=== PATIENT | male | born 1960 | race African-American/Black ===

== ENCOUNTER 2016-09-05 14:22 | Inpatient (IN) | payer BC ==
[~2016-09-05] VITALS: Ht 180.3 cm; Wt 79.4 kg
[~2016-09-05 14:22] MED LIST: NORCO 5-325 TA1 EACH ORAL
[2016-09-05] MEDS ORDERED: Morphine Sulfate 2mg/ml Inj IVP ONE (14:45)
--- NOTE | 2016-09-05 14:50 | Emergency Room Report ---
History of Present Illness General Chief Complaint: General Complaint Source: Patient, Family Member Present Illness HPI 56YOM walk-in with 4 days no appetite, nausea/vomiting, decreased/absent BM, still passing gas. Denies actual abdominal pain but feels like "my stomach is twisted." Denies fever/chills. Years ago had "twisting of intestine," was evaluated at [facility]. Denies surgery/operation, not sure how it was resolved. History of HTN. No other medical problems. Just got out of ETOH detox program 4 days ago. Hasnt drank since. Allergies: Coded Allergies: No Known Allergies (Unverified , 09/20/15) Patient History Past Medical History: HTN Past Surgical History: none Pertinent Family History: none Social History: Denies: alcohol use, drug use, smoking Immunizations: UTD Reviewed Nursing Documentation: PMH: Agreed, PSxH: Agreed Nursing Documentation-PMH Past Medical History: No History, Except For Hx Cancer: Yes - throat cancer 2011 Hx Gastrointestinal Problems: Yes Review of Systems All Other Systems: negative except mentioned in HPI Physical Exam Vital Signs Date Time Temp Pulse Resp B/P Pulse Ox O2 Delivery O2 Flow Rate FiO2 09/05/16 14:35 98.2 120 18 91/55 99 Room Air Sp02 EP Interpretation: reviewed, abnormal General Appearance: normal inspection, well appearing, no apparent distress, alert, GCS 15, non-toxic Head: normocephalic, atraumatic Eyes: bilateral eye EOMI, bilateral eye PERRL ENT: normal ENT inspection, hearing grossly normal, normal voice Neck: normal inspection, full range of motion, supple, no bony tend Respiratory: normal inspection, lungs clear, normal breath sounds, no respiratory distress, no retraction, no wheezing Cardiovascular #1: regular rate, rhythm, no edema Gastrointestinal: normal inspection, normal bowel sounds, non tender, soft, no guarding, no hernia Genitourinary: no CVA tenderness Musculoskeletal: normal inspection, back normal, normal range of motion, Chari' s Sign negative Neurologic: normal inspection, alert, oriented x3, responsive, tree and shrub technician III-XII nml as tested, motor strength/tone normal, speech normal Psychiatric: normal inspection, judgement/insight normal, mood/affect normal Skin: normal inspection, normal color, no rash Lymphatic: normal inspection Medical Decision Making Diagnostic Impression: Primary Impression: Nausea & vomiting Qualified Codes: R11.2 - Nausea with vomiting, unspecified Additional Impressions: NATALY (acute kidney injury) Dehydration ER Course Labs: No leuks. H&H stable. SerumCr 1.3 CTAP: no acute abnormalty to explain pain. Contrast seen all the way thru on CT. Admit to med/surg bed for dehydration, NATALY to Dr Packer at 621pm Rhythm Strip Diag. Results EP Interpretation: yes Rate: 99 Rhythm: NSR, no PVC's, no ectopy Last Vital Signs Date Time Temp Pulse Resp B/P Pulse Ox O2 Delivery O2 Flow Rate FiO2 09/05/16 14:35 98.2 120 18 91/55 99 Room Air Status: improved Disposition: ADMITTED INPATIENT Condition: Serious MARK MCGRAW M.D. Sep 05, 2016 14:50
[2016-09-05 14:52] VITALS: BP 126/83
[2016-09-05] MEDS ORDERED: BENAZEPRIL HCL10 MG ORAL (15:17)
[2016-09-05] MEDS ORDERED: NALTREXONE HCL50 MG PO (15:17)
[2016-09-05] MEDS ORDERED: GABAPENTIN300 MG ORAL (15:17)
[2016-09-05] MEDS ORDERED: QUETIAPINE FUMA25 MG ORAL (15:17)
[2016-09-05] MEDS ORDERED: NORVASC5 MG ORAL (15:17)
[2016-09-05 15:34] LABS: BASOPHILS % (AUTO) 1.6 % (0.0-2.0); EOSINOPHILS % (AUTO) 1.8 % (0.0-3.0); LYMPHOCYTES % (AUTO) 19.7 % (20.0-45.0); MEAN CORPUSCULAR HEMOGLOBIN 36.9 PG (27.0-31.0); MEAN CORPUSCULAR HGB CONC 35.8 G/DL (32.0-36.0); MEAN CORPUSCULAR VOLUME 103 FL (80-99); MEAN PLATELET VOLUME 7.7 FL (6.5-10.1); MONOCYTES % (AUTO) 7.7 % (1.0-10.0); NEUTROPHILS % (AUTO) 69.1 % (45.0-75.0); PLATELET COUNT 173 K/UL (150-450); WHITE BLOOD COUNT 10.6 K/UL (4.8-10.8)
[2016-09-05 15:35] LABS: INR 1.1 (0.9-1.1); PROTHROMBIN TIME 11.3 SEC (9.30-11.50)
[2016-09-05] MEDS ORDERED: LR 1000ml 1,000 ML IV STA (15:35)
[2016-09-05 15:40] LABS: ALANINE AMINOTRANSFERASE 5 U/L (3-41); ALBUMIN/GLOBULIN RATIO 1.3 (1.0-2.7); ASPARTATE AMINO TRANSFERASE 16 U/L (5-40); CALCIUM 10.6 mg/dL (8.6-10.2); CARBON DIOXIDE 27 mEQ/L (20-30); CREATININE 1.3 mg/dL (0.7-1.2); GLOMERULAR FILTRATION RATE > 60 mL/min (>60); HEMOLYSIS 38; LIPASE 16 U/L (< 60); TOTAL PROTEIN 7.9 g/dL (6.6-8.7); TROPONIN I < 0.30 ng/mL (<=0.30)
[2016-09-05 15:41] LABS: ANION GAP 17 (5-15); CHLORIDE 86 mEQ/L (98-107); SODIUM 130 mEQ/L (135-145)
[2016-09-05 17:05] LABS: APPEARANCE,URINE CLEAR; KETONES,URINE NEGATIVE (NEGATIVE); LEUKOCYTE ESTERASE ,URINE 2+ (NEGATIVE); NITRITE,URINE NEGATIVE (NEGATIVE); PH,URINE 6.5 (4.5-8.0); PROTEIN,URINE NEGATIVE (NEGATIVE); UROBILINOGEN,URINE NORMAL MG/DL (0.0-1.0)
[2016-09-05 17:23] LABS: AMORPHOUS SEDIMENT,UR FEW /LPF; BACTERIA,URINE FEW /HPF; RBC,URINE 0-2 /HPF (0 - 0)
[2016-09-05 17:50] VITALS: BP 132/73
[2016-09-05 19:00] VITALS: BP 124/80
[2016-09-05] MEDS: D5 1/2NS 1,000 ML IV SCH (19:29)
[2016-09-05 20:00] VITALS: BP 100/79
[2016-09-05] MEDS: Sorbitol Solution UD 30ml ORAL SCH (21:00)
[2016-09-05] MEDS: Morphine Sulfate 4mg/ml Inj IVP PRN (22:27)
[2016-09-06 00:14] VITALS: BP 132/84
[2016-09-06] MEDS: LORazepam 1mg tab ORAL PRN (00:23)
[2016-09-06] MEDS: D5 1/2NS 1,000 ML IV SCH ×4 (02:52→21:48)
[2016-09-06 04:00] VITALS: BP 122/77
[2016-09-06 07:04] LABS: AMYLASE 54 U/L (10-110); ANION GAP 14 (5-15); CALCIUM 9.5 mg/dL (8.6-10.2); CARBON DIOXIDE 27 mEQ/L (20-30); CHLORIDE 91 mEQ/L (98-107); CREATININE 1.1 mg/dL (0.7-1.2); GLOMERULAR FILTRATION RATE > 60 mL/min (>60); HEMOLYSIS 3; LIPASE 14 U/L (< 60); POTASSIUM 3.7 mEQ/L (3.4-4.9); SODIUM 132 mEQ/L (135-145)
[2016-09-06 07:30] LABS: BASOPHILS % (AUTO) 1.1 % (0.0-2.0); EOSINOPHILS % (AUTO) 5.2 % (0.0-3.0); LYMPHOCYTES % (AUTO) 29.4 % (20.0-45.0); MEAN CORPUSCULAR HEMOGLOBIN 35.2 PG (27.0-31.0); MEAN CORPUSCULAR HGB CONC 33.9 G/DL (32.0-36.0); MEAN CORPUSCULAR VOLUME 104 FL (80-99); MONOCYTES % (AUTO) 10.3 % (1.0-10.0); NEUTROPHILS % (AUTO) 53.9 % (45.0-75.0); PLATELET COUNT 192 K/UL (150-450); RED BLOOD COUNT 3.87 M/UL (4.70-6.10); RED CELL DISTRIBUTION WIDTH 14.3 % (11.6-14.8); WHITE BLOOD COUNT 5.8 K/UL (4.8-10.8)
[2016-09-06 08:00] VITALS: BP 124/79
[2016-09-06] MEDS ORDERED: D5 1/2NS 1000ml IV ONE (08:42)
[2016-09-06] MEDS: Sorbitol Solution UD 30ml ORAL SCH ×3 (09:00→16:43)
[2016-09-06] MEDS: Morphine Sulfate 4mg/ml Inj IVP PRN ×3 (09:55→21:49)
--- NOTE | 2016-09-06 10:26 | Diagnostic Imaging Report ---
Indication: Abdominal pain Technique: CT of the abdomen and pelvis utilizing automated exposure control with intravenous contrast. Venous scanning performed. CT dose: Total DLP 813 mGycm; CTDI vol 15.7 mGy Comparison: None Findings: There is a tiny hiatal hernia. There is wall thickening versus underdistention of the proximal stomach. Gallstones are present. A few tiny hypodensities are seen within the liver measuring up to 3 mm for example series 3 image 16 and image 18. The adrenal glands and pancreas are unremarkable. Small accessory splenule's are present. There is a 5 mm nonobstructive calculus of the left kidney. There is no hydronephrosis. There is no mechanical small bowel obstruction. The appendix is normal. There is colonic diverticulosis but not diverticulitis. There is no free intraperitoneal fluid or air. There is mild thickening versus underdistention of the stomach. Atherosclerotic changes are present. The abdominal aorta is normal in caliber. There is no bulky mesenteric or retroperitoneal adenopathy. There are acute indeterminate compression deformities of T10, T11 and T12. Impression: Normal appendix. No mechanical bowel obstruction. Wall thickening versus underdistention of the proximal stomach. Gastritis not excluded and further evaluation recommended as indicated. Nonobstructive left renal calculus. No hydronephrosis. Cholelithiasis. Colonic diverticulosis without diverticulitis. Superior endplate compression fracture deformities of T10, T11 and T12, acute indeterminate. Clinical correlation recommended. Mild wall thickening versus underdistention of the bladder. Cystitis not excluded and correlation with urinalysis recommended. Atherosclerotic changes. Other findings as above. The CT scanner at [facility] is accredited by the [employer] and the scans are performed using protocols designed to limit radiation exposure to as low as reasonably achievable to attain images of sufficient resolution adequate for diagnostic evaluation.
--- NOTE | 2016-09-06 10:38 | History & Physical ---
History and Physical History & Physicial hp dictated # [id number] GERMANIA MIMS Sep 06, 2016 10:38
[2016-09-06 12:40] VITALS: BP 118/66
[2016-09-06 16:00] VITALS: BP 109/78
[2016-09-06 20:00] VITALS: BP 132/77
--- NOTE | 2016-09-06 21:38 | History and Physical Report ---
DATE OF ADMISSION: 09/05/2016 CHIEF COMPLAINT: Anorexia, some nausea, and vomiting. HISTORY OF PRESENT ILLNESS: This is a 56-year-old male, who came to the emergency room for lack of appetite for the past four days. There is a note that the patient had no BM, however, the patient states he was not constipated and last night, he had a soft bowel movement and today as well. He feels better now. He had a CT of the abdomen in the emergency room, which was reported to me as unremarkable. PAST MEDICAL HISTORY: History of hypertension. The patient has a history of alcohol abuse, and he went to a detox program and for the past month or so, he has not been drinking. History of throat cancer, which was treated with radiation and chemotherapy about five years ago. SOCIAL HISTORY: The patient has a long history of smoking, history of alcohol abuse as mentioned. He lives at home with his . ALLERGIES: No known drug allergies. REVIEW OF SYSTEMS: As above. PHYSICAL EXAMINATION: GENERAL: The patient is a 56-year-old male, in no acute distress. VITAL SIGNS: Blood pressure 124/79, pulse 73, temperature 98.2, and respiratory rate is 20. HEENT: [place] conjunctivae. Anicteric sclerae. NECK: Supple. LUNGS: Clear to auscultation. HEART: S1 and S2 without murmurs or rubs. ABDOMEN: Soft and nontender. EXTREMITIES: No cyanosis or edema. LABORATORY FINDINGS: The CBC shows WBC of 5.8, hematocrit 40.2, hemoglobin is 13.6, and platelets are 192,000. Chemistry panel shows a serum sodium of 132, potassium 3.7, chloride 91, BUN 9, creatinine 1.1, blood sugar is 115, and calcium 9.5. Yesterday, the creatinine was 1.3 with serum sodium of 130. The patient has been getting IV fluids. The UA shows 2 to 4 WBCs per high-power field. No protein. ASSESSMENT: This is a 56-year-old male, who is admitted with anorexia, some nausea and vomiting. He is feeling better now. Overnight, he was on a clear liquid diet. It is unclear why the patient is anorexic at this time; however, he is feeling better. He did have some acute renal failure due to prerenal azotemia and dehydration. Also serum sodium was low and again it is likely with volume depletion. It has improved since admission with IV fluids. PLAN: The patient will be hydrated. We will change the diet to regular soft to see if the patient can tolerate it. If the patient's symptoms resolve, the patient will be discharged home. Case was discussed with the patient's RN. Musa Packer M.D. DR: GERALD JOB#: [id number] CC:
[2016-09-07] VITALS: BP 109/56
[2016-09-07] MEDS: LORazepam 1mg tab ORAL PRN (00:44)
[2016-09-07 04:00] VITALS: BP 137/86
[2016-09-07 08:00] VITALS: BP 120/71
[2016-09-07] MEDS: Sorbitol Solution UD 30ml ORAL SCH ×2 (08:28→08:43)
[2016-09-07 08:29] VITALS: BP 120/71
[2016-09-07] MEDS: Morphine Sulfate 4mg/ml Inj IVP PRN (08:30)
--- NOTE | 2016-09-07 09:27 | Consultation ---
Consult Note Assessment/Plan Dc dictated # [id number] GERMANIA MIMS Sep 07, 2016 09:27
[2016-09-07] MEDS ORDERED: PROTONIX40 MG ORAL (10:11)
[2016-09-07] MEDS ORDERED: D5 1/2NS 1000ml IV ONE (10:32)
--- NOTE | 2016-09-08 01:08 | Discharge Summary ---
DATE OF ADMISSION: 09/05/2016 DATE OF DISCHARGE: 09/07/2016 CHIEF COMPLAINT: Anorexia, nausea, and vomiting. HISTORY OF PRESENT ILLNESS: The patient is a 56-year-old male, who was admitted with above symptoms. He had a CT scan of the abdomen in the emergency room, which basically does not give the etiology of the abdominal pain, any significant pathology, although the patient had some nonobstructive left renal calculus and cholelithiasis, diverticulosis without diverticulitis. They were superior endplate compression fracture deformities at T10, T11, and T12. Acutely, it was indeterminate. The patient's symptoms improved after admission. The patient was initially hydrated. His appetite improved so that his initial diet which was liquid changed to solid food. He tolerated well. He had also some hyponatremia with sodium 130, which was thought to be as a result of volume depletion. Also, his serum creatinine was slightly elevated at 1.3, but improved to 1.1 upon admission. His amylase and lipase were within normal limits. DISCHARGE DIAGNOSES: 1. Anorexia, nausea, and vomiting of unclear etiology, possibility of acute gastritis. Note, that the patient had previous alcohol abuse. 2. Acute renal failure as a result of volume depletion with hyponatremia volume depletion. DISCHARGE MEDICATIONS: Please refer to discharge medication list. Musa Packer M.D. DR: SUNIL JOB#: [id number] CC: CHRISTY
== END 2016-09-07 10:33 | disposition home or self-care (01) | DRG 683 ==
LOC: EMR 15:10 → 3E 16:03 → EDBEDREQ 17:04
DX: N17.9 Acute kidney failure, unspecified (principal); E87.1 Hypo-osmolality and hyponatremia; I10 Essential (primary) hypertension; E86.0 Dehydration; R11.2 Nausea with vomiting, unspecified; K29.70 Gastritis, unspecified, without bleeding; Z87.891 Personal history of nicotine dependence; Z85.89 Personal history of malignant neoplasm of other organs and systems; F10.21 Alcohol dependence, in remission; N20.0 Calculus of kidney; R63.0 Anorexia; K57.90 Diverticulosis of intestine, part unspecified, without perforation or abscess without bleeding; Z92.3 Personal history of irradiation
CPT/HCPCS: 36415; 74177; 80048; 80053; 81003; 82150; 83690; 84484; 85025; 85610; 85730; 86850; 86900; 86901; J2405

== ENCOUNTER 2016-12-18 06:54 | Emergency (ER) | payer BC ==
[~2016-12-18] VITALS: Ht 180.3 cm; Wt 77.1 kg
[~2016-12-18 06:54] MED LIST changes: +BENAZEPRIL HCL10 MG ORAL; +GABAPENTIN300 MG ORAL; +NALTREXONE HCL50 MG PO; +NORVASC5 MG ORAL; +PROTONIX40 MG ORAL; +QUETIAPINE FUMA25 MG ORAL
[2016-12-18] MEDS ORDERED: NAPROXEN500 M2 ORAL (07:13)
[2016-12-18] MEDS ORDERED: LIDOCAINE VISC100 ML ORAL ×2 (07:13→11:11)
[2016-12-18] MEDS ORDERED: ROXICODONE15 MG ORAL (07:13)
[2016-12-18] MEDS ORDERED: Morphine Sulfate 4mg/ml Inj IVP ONE (07:15)
[2016-12-18] MEDS ORDERED: Famotidine 20 MG/ 2ML VIAL IVP ONE (07:15)
--- NOTE | 2016-12-18 07:17 | Emergency Room Report ---
History of Present Illness General Chief Complaint: Abdominal Pain Source: Patient Present Illness HPI Patient presents with epigastric pain. Began at 8 PM last night. It's constant and burning. It radiates somewhat into his chest. He's been vomiting with that. He believes he ate something at a truck that's made him sick. Denies any diarrhea. The pain does not radiate into his back. He's never had pancreatitis before. He denies any fevers. He does have a sore throat. He denies any dysuria. The pain is 10/10. He has hypertension but is not taking any medication for it. He denies any diabetes. He does smoke cigarettes. He has a history of throat cancer. The pain in his throat is chronic and severe , burning. This began after radiation. He usually takes pain medicines and occasionally lidocaine, but can't due to the vomiting. Patient denies coughing, phlegm, rashes, headache, dizziness. Allergies: Coded Allergies: No Known Allergies (Unverified , 09/20/15) Patient History Past Medical History: see triage record Social History: Reports: alcohol use, smoking Social History Narrative Reviewed Nursing Documentation: PMH: Agreed, PSxH: Agreed Nursing Documentation-PMH Past Medical History: No History, Except For Hx Cardiac Problems: Yes Hx Hypertension: Yes Hx Cancer: Yes - THROAT CA Hx Gastrointestinal Problems: Yes - CONSTIPATION Hx Neurological Problems: No Review of Systems All Other Systems: negative except mentioned in HPI Physical Exam Vital Signs Date Time Temp Pulse Resp B/P Pulse Ox O2 Delivery O2 Flow Rate FiO2 12/18/16 06:59 97.9 106 16 157/90 98 Room Air Sp02 EP Interpretation: reviewed, normal General Appearance: well appearing, no apparent distress, GCS 15 Head: normocephalic Eyes: bilateral eye PERRL, bilateral eye normal inspection ENT: moist mucus membranes, pharyngeal erythema Neck: supple Respiratory: lungs clear, normal breath sounds Cardiovascular #1: regular rate, rhythm Cardiovascular #2: 2+ radial (R) Gastrointestinal: normal inspection, normal bowel sounds, no mass, non- distended, no guarding, no rebound, tenderness - epigastric Musculoskeletal: back normal, gait/station normal, normal range of motion Neurologic: alert, oriented x3, grossly normal Psychiatric: mood/affect normal Skin: normal inspection, warm/dry Medical Decision Making Diagnostic Impression: Primary Impression: Epigastric pain Additional Impressions: Vomiting Qualified Codes: R11.2 - Nausea with vomiting, unspecified Throat pain History of throat cancer ER Course Patient presents with epigastric pain, sore throat and vomiting. Differential includes viral syndrome, gastroenteritis, food poisoning, pancreatitis, gastritis, GERD. Additionally to exclude cardiac cause of. The patient was evaluated with EKG, abdominal films and labs are. He will be treated with IV hydration, Pepcid, Zofran and morphine. The throat pain is constant. He will be given lidocaine when able to tolerate PO. EKG below. Abdominal film unremarkable. Labs significant for slight leukocytosis and elevated creatinine. He requested Dilaudid. Improved with treatment. Patient stable for outpatient observation and treatment. Labs Test 12/18/16 07:20 12/18/16 07:29 12/18/16 10:26 Troponin I < 0.30 ng/mL (<=0.30) White Blood Count 12.2 K/UL (4.8-10.8) Red Blood Count 3.37 M/UL (4.70-6.10) Hemoglobin 10.6 G/DL (14.2-18.0) Hematocrit 31.4 % (42.0-52.0) Mean Corpuscular Volume 93 FL (80-99) Mean Corpuscular Hemoglobin 31.5 PG (27.0-31.0) Mean Corpuscular Hemoglobin Concent 33.8 G/DL (32.0-36.0) Red Cell Distribution Width 13.7 % (11.6-14.8) Platelet Count 198 K/UL (150-450) Mean Platelet Volume 7.6 FL (6.5-10.1) Neutrophils (%) (Auto) 74.7 % (45.0-75.0) Lymphocytes (%) (Auto) 18.2 % (20.0-45.0) Monocytes (%) (Auto) 5.1 % (1.0-10.0) Eosinophils (%) (Auto) 1.0 % (0.0-3.0) Basophils (%) (Auto) 1.0 % (0.0-2.0) Sodium Level 138 mEQ/L (135-145) Potassium Level 3.6 mEQ/L (3.4-4.9) Chloride Level 100 mEQ/L (98-107) Carbon Dioxide Level 23 mEQ/L (20-30) Anion Gap 15 (5-15) Blood Urea Nitrogen 10 mg/dL (7-23) Creatinine 1.3 mg/dL (0.7-1.2) Estimat Glomerular Filtration Rate > 60 mL/min (>60) Glucose Level 109 mg/dL (74-106) Calcium Level 9.5 mg/dL (8.6-10.2) Total Bilirubin 0.4 mg/dL (0.0-1.2) Aspartate Amino Transf (AST/SGOT) 19 U/L (5-40) Alanine Aminotransferase (ALT/SGPT) 6 U/L (3-41) Alkaline Phosphatase 30 U/L (40-129) Total Protein 6.6 g/dL (6.6-8.7) Albumin 4.1 g/dL (3.5-5.2) Globulin 2.5 g/dL Albumin/Globulin Ratio 1.6 (1.0-2.7) Lipase 9 U/L (< 60) Urine Color Pale yellow Urine Appearance Clear Urine pH 6 (4.5-8.0) Urine Specific [place] 1.015 (1.005-1.035) Urine Protein 1+ (NEGATIVE) Urine Glucose (UA) Negative (NEGATIVE) Urine Ketones 3+ (NEGATIVE) Urine Occult Blood 2+ (NEGATIVE) Urine Nitrite Negative (NEGATIVE) Urine Bilirubin Negative (NEGATIVE) Urine Urobilinogen Normal MG/DL (0.0-1.0) Urine Leukocyte Esterase 1+ (NEGATIVE) Urine RBC 5-10 /HPF (0 - 0) Urine WBC 2-4 /HPF (0 - 0) Urine Squamous Epithelial Cells Few /LPF (NONE/OCC) Urine Bacteria None /HPF (NONE) EKG Diagnostic Results Rate: normal Rhythm: NSR ST Segments: no acute changes Rhythm Strip Diag. Results EP Interpretation: yes Rhythm: NSR, no PVC's, no ectopy Other X-Ray Diagnostic Results Other X-Ray Diagnostic Results : # of Views/Limited Vs Complete: 1 View Indication: Pain EP Interpretation: Yes Interpretation: nonspecific bowel gas, no sbo, other - min DJD Impression: No acute disease Interpreting ER Provider: Electronically signed by Ajit Carrasco MD Last Vital Signs Date Time Temp Pulse Resp B/P Pulse Ox O2 Delivery O2 Flow Rate FiO2 12/18/16 11:23 70 16 134/79 98 Room Air 12/18/16 08:17 97.9 Status: improved Disposition: HOME, SELF-CARE Condition: Improved Scripts Lidocaine HCl 2% Viscous (Lidocaine HCl 2% Viscous) 100 Ml Solution 10 ML ORAL QID, #120 ML 1 Refill Prov: Ajit Carrasco M.D. 12/18/16 Famotidine (PEPCID) 20 Mg Tablet 20 MG ORAL DAILY, #7 TAB 0 Refills Prov: Ajit Carrasco M.D. 12/18/16 Ondansetron Odt* (ZOFRAN ODT*) 4 Mg Tab.rapdis 4 MG ORAL Q8H Y for Nausea & Vomiting, #6 TAB 0 Refills Prov: Ajit Carrasco M.D. 12/18/16 Hydrocodone Bit/Acetaminophen 5-325* (NORCO 5-325*) 1 Each Tablet 1 TAB ORAL Q6H Y for For Pain, #10 TAB 0 Refills Prov: Ajit Carrasco M.D. 12/18/16 Ajit Carrasco M.D. Dec 18, 2016 07:17
[2016-12-18 07:45] VITALS: BP 151/87
[2016-12-18] MEDS ORDERED: Lidocaine 2% Visc 15ml soln ORAL ONE (08:00)
[2016-12-18 08:07] LABS: LYMPHOCYTES % (AUTO) 18.2 % (20.0-45.0); MEAN CORPUSCULAR HEMOGLOBIN 31.5 PG (27.0-31.0); MEAN CORPUSCULAR HGB CONC 33.8 G/DL (32.0-36.0); MEAN CORPUSCULAR VOLUME 93 FL (80-99); MEAN PLATELET VOLUME 7.6 FL (6.5-10.1); MONOCYTES % (AUTO) 5.1 % (1.0-10.0); NEUTROPHILS % (AUTO) 74.7 % (45.0-75.0); PLATELET COUNT 198 K/UL (150-450); RED BLOOD COUNT 3.37 M/UL (4.70-6.10); RED CELL DISTRIBUTION WIDTH 13.7 % (11.6-14.8); WHITE BLOOD COUNT 12.2 K/UL (4.8-10.8)
[2016-12-18] MEDS ORDERED: HYDROmorphone 1mg/ml Carpuject IVP ONE (08:15)
[2016-12-18 08:31] LABS: TROPONIN I < 0.30 ng/mL (<=0.30)
[2016-12-18 08:32] LABS: ALANINE AMINOTRANSFERASE 6 U/L (3-41); ALBUMIN/GLOBULIN RATIO 1.6 (1.0-2.7); ANION GAP 15 (5-15); ASPARTATE AMINO TRANSFERASE 19 U/L (5-40); CALCIUM 9.5 mg/dL (8.6-10.2); CARBON DIOXIDE 23 mEQ/L (20-30); CHLORIDE 100 mEQ/L (98-107); CREATININE 1.3 mg/dL (0.7-1.2); GLOMERULAR FILTRATION RATE > 60 mL/min (>60); HEMOLYSIS 70; LIPASE 9 U/L (< 60); POTASSIUM 3.6 mEQ/L (3.4-4.9); SODIUM 138 mEQ/L (135-145); TOTAL PROTEIN 6.6 g/dL (6.6-8.7)
[2016-12-18 10:30] VITALS: BP 129/80
[2016-12-18 10:48] LABS: APPEARANCE,URINE CLEAR; KETONES,URINE 3+ (NEGATIVE); LEUKOCYTE ESTERASE ,URINE 1+ (NEGATIVE); NITRITE,URINE NEGATIVE (NEGATIVE); PH,URINE 6 (4.5-8.0); PROTEIN,URINE 1+ (NEGATIVE); UROBILINOGEN,URINE NORMAL MG/DL (0.0-1.0)
[2016-12-18 10:50] LABS: SQUAMOUS EPITHELIAL CELL,UR FEW /LPF (NONE/OCC)
[2016-12-18] MEDS ORDERED: NORCO 5-325 TA1 EACH ORAL (11:09)
[2016-12-18] MEDS ORDERED: PEPCID20 MG ORAL (11:09)
[2016-12-18] MEDS ORDERED: ZOFRAN ODT4 MG ORAL (11:09)
[2016-12-18 11:23] VITALS: BP 134/79
--- NOTE | 2016-12-18 12:09 | Diagnostic Imaging Report ---
Indication: Abdominal pain Comparison: 08/26/2008 Single view of the abdomen obtained Findings: Bowel gas pattern is nonspecific. No mass, ectopic calcifications, or abnormal gas collections are identified. The bones are unremarkable. Impression: No acute findings
== END 2016-12-18 11:25 | disposition home or self-care (01) ==
LOC: EMR 07:26
DX: R10.13 Epigastric pain (principal); R11.10 Vomiting, unspecified; R07.0 Pain in throat; I10 Essential (primary) hypertension; Z85.89 Personal history of malignant neoplasm of other organs and systems
CPT/HCPCS: 36415; 74000; 80053; 81003; 83690; 84484; 85025; 93005; 96361; 96374; 96375; 99284; J1170; J2270; J2405; S0028

== ENCOUNTER 2017-05-22 10:44 | Inpatient (IN) | payer BC ==
[~2017-05-22] VITALS: Ht 175.3 cm; Wt 70.8 kg
[~2017-05-22 10:44] MED LIST changes: +LIDOCAINE VISC100 ML ORAL; +NAPROXEN500 M2 ORAL; +PEPCID20 MG ORAL; +ROXICODONE15 MG ORAL; +ZOFRAN ODT4 MG ORAL
[2017-05-22] MEDS ORDERED: Morphine Sulfate 4mg/ml Inj IVP ONE ×2 (11:30→12:15)
[2017-05-22 11:35] VITALS: BP 149/78
--- NOTE | 2017-05-22 11:38 | Emergency Room Report ---
History of Present Illness General Chief Complaint: Vomiting Source: Patient Present Illness HPI 56-year-old male, history of throat cancer, status post chemotherapy and radiation that was performed the last time this past March, has a PEG tube, presenting with nausea and vomiting. Patient states that he was on a fentanyl patch and has been weaning off his tylotic. States that this morning he had about 2-3 episodes of nonbilious nonbloody vomiting. No diarrhea. Currently not complaining of abdominal pain Allergies: Coded Allergies: No Known Allergies (Unverified , 09/20/15) Patient History Past Medical History: see triage record Past Surgical History: none Pertinent Family History: none Reviewed Nursing Documentation: PMH: Agreed, PSxH: Agreed Nursing Documentation-PMH Hx Cardiac Problems: Yes Hx Hypertension: Yes Hx Cancer: Yes - THROAT CA Hx Gastrointestinal Problems: Yes - CONSTIPATION Hx Neurological Problems: No Review of Systems All Other Systems: negative except mentioned in HPI Physical Exam Vital Signs Date Time Temp Pulse Resp B/P (MAP) Pulse Ox O2 Delivery O2 Flow Rate FiO2 05/22/17 10:54 97.7 122 22 166/98 100 Room Air Sp02 EP Interpretation: reviewed, normal General Appearance: alert, GCS 15, non-toxic, mild distress Head: normocephalic, atraumatic Eyes: bilateral eye normal inspection, bilateral eye PERRL, bilateral eye EOMI ENT: normal ENT inspection, normal pharynx, normal voice, moist mucus membranes Neck: normal inspection, full range of motion, supple Respiratory: normal inspection, lungs clear, normal breath sounds, no respiratory distress, no retraction, no wheezing, speaking full sentences, chest symmetrical Cardiovascular #1: normal peripheral pulses, no edema, tachycardia Cardiovascular #2: 2+ radial (R), 2+ radial (L) Gastrointestinal: other - PEG tube in place, abdomen is very soft nontender all throughout abdomen Genitourinary: no CVA tenderness Musculoskeletal: normal inspection, back normal, normal range of motion, non- tender Neurologic: normal inspection, alert, oriented x3, responsive, motor strength/ tone normal, sensory intact, normal gait, speech normal Psychiatric: normal inspection, judgement/insight normal, memory normal Skin: normal inspection, normal color, no rash, warm/dry, well hydrated, normal turgor Medical Decision Making Diagnostic Impression: Primary Impression: Intractable nausea and vomiting Additional Impression: Throat cancer ER Course 56-year-old male with nausea and vomiting Differential Diagnosis: Gastritis, gastroenteritis, cholecystitis, appendicitis, diverticulitis, SBO, mesenteric ischemia, cardiac, UTI/pyelo At this time abdomen is soft nontender, not likely to have acute intra- abdominal surgical pathology, will hold CT for now. Plan: Basic labs, ua, ekg Zofran, pain control, IVF ER course: continues to have abd pain nausea feeling weak will admit Disposition: Admitted patient to med surg under Dr Packer who has accepted pt for admission Strict return precautions discussed with patient such as fever, chills, worsening/severe abdominal pain, nausea, vomiting, black or bloody stools, which may indicate severe illness. Patient verbalizes understanding and agrees with plan. Please note that this Emergency Department Report was dictated using Agilencetemperature logging operator technology software, occasionally this can lead to erroneous entry secondary to interpretation by the dictation equipment EKG Diagnostic Results EP Interpretation: Yes Rate: Tachycardic Rhythm: NSR ST Segments: No acute changes ASA given to patient: No Rhythm Strip EP Interpretation: Yes Rate: 100 Rhythm: NSR, no PVCs, no ectopy Laboratory Tests Test 05/22/17 11:10 White Blood Count 9.7 K/UL (4.8-10.8) Red Blood Count 3.77 M/UL (4.70-6.10) L Hemoglobin 11.5 G/DL (14.2-18.0) L Hematocrit 35.8 % (42.0-52.0) L Mean Corpuscular Volume 95 FL (80-99) Mean Corpuscular Hemoglobin 30.5 PG (27.0-31.0) Mean Corpuscular Hemoglobin Concent 32.2 G/DL (32.0-36.0) Red Cell Distribution Width 13.8 % (11.6-14.8) Platelet Count 248 K/UL (150-450) Mean Platelet Volume 7.1 FL (6.5-10.1) Neutrophils (%) (Auto) 62.9 % (45.0-75.0) Lymphocytes (%) (Auto) 26.9 % (20.0-45.0) Monocytes (%) (Auto) 7.4 % (1.0-10.0) Eosinophils (%) (Auto) 1.5 % (0.0-3.0) Basophils (%) (Auto) 1.3 % (0.0-2.0) Sodium Level 134 MMOL/L (136-145) L Potassium Level 3.3 MMOL/L (3.5-5.1) L Chloride Level 97 MMOL/L (98-107) L Carbon Dioxide Level 27 MMOL/L (21-32) Anion Gap 10 mmol/L (5-15) Blood Urea Nitrogen 14 mg/dL (7-18) Creatinine 1.2 MG/DL (0.55-1.30) Estimate Glomerular Filtration Rate > 60 mL/min (>60) Glucose Level 134 MG/DL (74-106) H Lactic Acid Level 1.60 mmol/L (0.66-2.22) Calcium Level 9.1 MG/DL (8.5-10.1) Total Bilirubin 0.6 MG/DL (0.2-1.0) Aspartate Amino Transferase (AST) 15 U/L (15-37) Alanine Aminotransferase (ALT) 10 U/L (12-78) L Alkaline Phosphatase 47 U/L (46-116) Total Protein 8.3 G/DL (6.4-8.2) H Albumin 4.3 G/DL (3.4-5.0) Globulin 4.0 g/dL Albumin/Globulin Ratio 1.1 (1.0-2.7) CT/MRI/US Diagnostic Results CT/MRI/US Diagnostic Results : Imaging Test Ordered: CT abdo pelvis Impression Comparison 09/05/2016 The lung bases are clear No bowel dilation, free air or free fluid Percutaneous gastrostomy tube now seen A few tiny calcified gallstones nondistended, noninflamed appearing gallbladder again noted Nonobstructing left intrarenal stone again seen Aortoiliac atherosclerotic change again noted Normal caliber appendix without secondary signs Last Vital Signs Date Time Temp Pulse Resp B/P (MAP) Pulse Ox O2 Delivery O2 Flow Rate FiO2 05/22/17 10:54 97.7 122 22 166/98 100 Room Air Disposition: ADMITTED INPATIENT Condition: Cherry George M.D. May 22, 2017 11:38
[2017-05-22 11:43] LABS: BASOPHILS % (AUTO) 1.3 % (0.0-2.0); EOSINOPHILS % (AUTO) 1.5 % (0.0-3.0); LYMPHOCYTES % (AUTO) 26.9 % (20.0-45.0); MEAN CORPUSCULAR HEMOGLOBIN 30.5 PG (27.0-31.0); MEAN CORPUSCULAR HGB CONC 32.2 G/DL (32.0-36.0); MEAN CORPUSCULAR VOLUME 95 FL (80-99); MEAN PLATELET VOLUME 7.1 FL (6.5-10.1); MONOCYTES % (AUTO) 7.4 % (1.0-10.0); NEUTROPHILS % (AUTO) 62.9 % (45.0-75.0); PLATELET COUNT 248 K/UL (150-450); RED BLOOD COUNT 3.77 M/UL (4.70-6.10); RED CELL DISTRIBUTION WIDTH 13.8 % (11.6-14.8); WHITE BLOOD COUNT 9.7 K/UL (4.8-10.8)
[2017-05-22 11:54] LABS: ANION GAP 10 mmol/L (5-15); CALCIUM 9.1 MG/DL (8.5-10.1); CARBON DIOXIDE 27 MMOL/L (21-32); CHLORIDE 97 MMOL/L (98-107); CREATININE 1.2 MG/DL (0.55-1.30); GLOMERULAR FILTRATION RATE > 60 mL/min (>60); POTASSIUM 3.3 MMOL/L (3.5-5.1); SODIUM 134 MMOL/L (136-145)
[2017-05-22 11:58] LABS: ALANINE AMINOTRANSFERASE 10 U/L (12-78); ALBUMIN/GLOBULIN RATIO 1.1 (1.0-2.7); ASPARTATE AMINO TRANSFERASE 15 U/L (15-37); TOTAL PROTEIN 8.3 G/DL (6.4-8.2)
[2017-05-22] MEDS ORDERED: HYDROmorphone 1mg/NS 50ml IVPB 50 ML IVPB ONE (13:15)
[2017-05-22 13:29] VITALS: BP 139/83
[2017-05-22 13:41] LABS: APPEARANCE,URINE CLEAR; KETONES,URINE 3+ (NEGATIVE); LEUKOCYTE ESTERASE ,URINE NEGATIVE (NEGATIVE); NITRITE,URINE NEGATIVE (NEGATIVE); PH,URINE 8 (4.5-8.0); PROTEIN,URINE NEGATIVE (NEGATIVE); UROBILINOGEN,URINE NORMAL MG/DL (0.0-1.0)
[2017-05-22] MEDS ORDERED: LORazepam Inj 2mg/ml 1ml IV PRN (14:45)
[2017-05-22] MEDS ORDERED: Morphine Sulfate 2mg/ml Inj IVP PRN (14:45)
[2017-05-22] MEDS ORDERED: Milk of Magnesia 30ml Ud ORAL PRN (14:45)
[2017-05-22] MEDS ORDERED: Morphine Sulfate 4mg/ml Inj IVP PRN (14:45)
[2017-05-22] MEDS ORDERED: Zolpidem 5mg tab ORAL PRN (14:45)
--- NOTE | 2017-05-22 14:48 | History & Physical ---
History and Physical History & Physicial HP dictated # [id number] GERMANIA MIMS May 22, 2017 14:48
[2017-05-22 16:00] VITALS: BP 156/98
[2017-05-22] MEDS: Benazepril 10mg tab ORAL SCH (16:39)
[2017-05-22] MEDS: Pantoprazole Inj IV SCH (16:39)
[2017-05-22] MEDS: D5 1/2NS 1,000 ML IV SCH (17:07)
[2017-05-22] MEDS ORDERED: HYDROmorphone 1mg/ml Carpuject IVP PRN (18:15)
[2017-05-22] MEDS ORDERED: HYDROmorphone 1mg/ml Carpuject IM PRN (18:15)
[2017-05-22 20:00] VITALS: BP 163/108
[2017-05-22] MEDS: Hydromorphone 0.5mg/0.5ml inj IVP PRN (21:23)
[2017-05-23] VITALS: BP 101/57
[2017-05-23] MEDS: D5 1/2NS 1,000 ML IV SCH ×2 (01:47→13:17)
--- NOTE | 2017-05-23 02:30 | History and Physical Report ---
DATE OF ADMISSION: 05/22/2017 CHIEF COMPLAINT: Abdominal pain, nausea, and vomiting. HISTORY OF PRESENT ILLNESS: This is a 56-year-old male, who is known to me from a previous admission in 09/2016. At that time, the patient was admitted also for nausea and vomiting and no clear etiology was found. The patient had previous history of throat cancer many years ago, however, around March, he was diagnosed also with tongue cancer. He is status post chemotherapy and radiation, received G-tube, but recently, he was starting to eat and tapered down the amount of cans he was using for tube feeding. Also, he was on high-dose fentanyl patch and he was weaning that off gradually, the latest was 12 mcg. The patient lives at home with and started having severe abdominal pain, nausea, and vomiting. He states that he vomited 4-5 times. The pain was constant and finally he was brought into the emergency room by . After hours, finally he improved. PAST MEDICAL HISTORY: Also includes history of hypertension, history of alcohol abuse, but he states that he is not taking any alcohol since 07/2016. History of throat cancer and tongue cancer as mentioned. ALLERGIES: No known drug allergies. SOCIAL HISTORY: He still smokes about three-quarter of pack a day, has been smoking for many years, otherwise as above. REVIEW OF SYSTEMS: Noncontributory. PHYSICAL EXAMINATION: GENERAL: The patient is a 56-year-old male, in no acute distress. VITAL SIGNS: Blood pressure 139/83, pulse 89, temperature 97.7 degrees, and respirations 22. HEENT: Some pale conjunctivae. Anicteric sclerae. NECK: Supple. LUNGS: Clear to auscultation. HEART: S1, S2 without murmurs or rubs. ABDOMEN: Soft, nontender. The patient has G-tube in upper abdomen. EXTREMITIES: No cyanosis or edema. LABORATORY FINDINGS: The chemistry panel shows serum sodium 134, potassium 3.3, chloride 97, CO2 of 27, BUN 14, and creatinine 1.2. Blood sugar is 137. CBC shows WBC of 9.7, hematocrit 35.8, hemoglobin 11.5, and platelets 248,000. UA shows only ketones, otherwise unremarkable. ASSESSMENT: This is a 56-year-old male, who is admitted with severe abdominal pain and vomiting. Although he has been taking narcotics, he states that he has regular bowel movements, so constipation is less likely. He could have acute gastroenteritis or gastritis. Doubt other etiology such as small bowel obstruction. PLAN: The patient will be on clear liquid diet, IV fluids, p.r.n. IV pain medications, and antiemetics. We will continue his current medications including blood pressure medications. GI consultation will be obtained and further adjustment will be made in the patient's regimen. Musa Pakcer M.D. DR: Shaheed JOB#: [id number] CC:
[2017-05-23 04:27] VITALS: BP 143/86
[2017-05-23 08:23] VITALS: BP 152/90
[2017-05-23] MEDS: Benazepril 10mg tab ORAL SCH (08:41)
[2017-05-23] MEDS: Pantoprazole Inj IV SCH (08:41)
[2017-05-23] MEDS: Hydromorphone 0.5mg/0.5ml inj IVP PRN ×3 (08:44→17:17)
[2017-05-23 12:12] VITALS: BP 114/79
--- NOTE | 2017-05-23 12:31 | Diagnostic Imaging Report ---
Indication: Pain Technique: CT of the abdomen and pelvis utilizing automated exposure control with intravenous contrast. Venous scanning performed. CT dose: Total DLP 616.71 mGycm; CTDI vol 12.77 mGy Comparison: 09/05/2016 Findings: Minimal dependent atelectasis seen in the lung bases. Heart size within normal limits. There is no pericardial effusion. Subcentimeter hypodensities noted within the liver, too small to fully characterize but possibly simple hepatic cysts. These are unchanged from the prior exam. Calcified gallstone noted within the gallbladder. No CT evidence to suggest an acute cholecystitis. Small splenule is noted adjacent to the spleen. Otherwise spleen is unremarkable. Adrenal glands and pancreas grossly unremarkable. Kidneys enhance symmetrically. Unchanged nonobstructive left renal stone. No hydronephrosis bilaterally. Coarse calcifications noted within the prostate. Apparent bladder wall thickening versus underdistention. No evidence of bowel obstruction. There is been interval gastrostomy tube placement. Appendix is normal. No free intraperitoneal fluid or air. Abdominal aorta is normal in caliber with severe atherosclerotic calcification, including calcification of its main branches. Mild degenerative changes of the thoracolumbar spine with mild to compression deformities of the T11 and T12 vertebral bodies - unchanged. Impression: No evidence of bowel obstruction. Normal appendix. Interval placement of gastrostomy tube. Persistent thickening of the proximal stomach. Gastritis not excluded. Cholelithiasis without CT evidence to suggest an acute cholecystitis. Nonobstructing left renal stone. No hydronephrosis. Apparent bladder wall thickening versus underdistention. Correlate with urinalysis. Additional findings as above. The CT scanner at [facility] is accredited by the [employer] and the scans are performed using protocols designed to limit radiation exposure to as low as reasonably achievable to attain images of sufficient resolution adequate for diagnostic evaluation.
[2017-05-23] MEDS ORDERED: D5 1/2NS 1000ml IV ONE (12:42)
[2017-05-23 12:57] LABS: ANION GAP 5 mmol/L (5-15); CALCIUM 8.3 MG/DL (8.5-10.1); CARBON DIOXIDE 29 MMOL/L (21-32); CHLORIDE 100 MMOL/L (98-107); GLOMERULAR FILTRATION RATE > 60 mL/min (>60); POTASSIUM 3.9 MMOL/L (3.5-5.1); SODIUM 134 MMOL/L (136-145)
--- NOTE | 2017-05-23 14:58 | Cardiology Report ---
APPROVED REPORT EKG Measurement Heart [id number] Sinus tachycardia Possible Left atrial enlargement Left axis deviation Abnormal ECG
[2017-05-23 16:00] VITALS: BP 96/61
--- NOTE | 2017-05-23 18:54 | Consultation ---
Consult Note Assessment/Plan DC dictated # [id number] GERMANIA MIMS May 23, 2017 18:54
--- NOTE | 2017-05-23 21:45 | Consultation ---
DATE OF CONSULTATION: 05/23/2017 GASTROENTEROLOGY CONSULTATION CHIEF COMPLAINT: Nausea, vomiting, and abdominal pain. HISTORY OF PRESENT ILLNESS: The patient is a 56-year-old male with throat cancer, status post radiation and chemotherapy, last one was in March of 2017, and history of G-tube placement at [facility]. He is here because he had one episode of nausea and vomiting. According to him, it happens few times to him. In the last admission, he had a CT of the abdomen and pelvis that showed evidence of gastric wall thickening versus distention, had evidence of diverticulosis and gallstones. The patient is readmitted again for management of his vomiting. PAST MEDICAL HISTORY: 1. History of throat cancer, status post radiation and chemotherapy. 2. Dysphagia requiring G-tube placement. 3. Hypertension. 4. Gallstones. 5. Diverticulosis. MEDICATIONS: Please see medication reconciliation list. ALLERGIES: No known drug allergies. SOCIAL HISTORY: The patient is a smoker. Denies any alcohol or drug abuse. FAMILY HISTORY: Noncontributory. REVIEW OF SYSTEMS: A 10-point review of system was performed and pertinent positives in history of present illness. PHYSICAL EXAMINATION: GENERAL: A well-developed, well-nourished male, in no acute distress. VITAL SIGNS: Temperature is 98.1, pulse is 80, respirations 20, and blood pressure is 150/90. HEENT: Normocephalic and atraumatic. Sclerae anicteric. NECK: Supple. No evidence of obvious lymphadenopathy. CARDIOVASCULAR: Regular rhythm. Plus S1 and S2. No obvious murmur. LUNGS: Clear to auscultation bilaterally. ABDOMEN: Positive bowel sounds. Soft. Nontender. G-tube in place. No rebound. No guarding. No peritoneal signs. EXTREMITIES: No cyanosis. No clubbing. No edema. LABORATORY DATA: White count is 9.7, hemoglobin , hematocrit 35, and platelet count is 248,000. ASSESSMENT AND PLAN: This is a 56-year-old with recurrent nausea, vomiting, and abdominal pain of unknown etiology at this time. According to him this morning, he is asymptomatic. According to him, the antacids help him with the symptoms. Plan to put him on Protonix and Zofran p.r.n. for nausea and vomiting and advance diet to GI soft diet. Repeat laboratories for tomorrow including amylase and lipase. I want to thank, Dr. Musa Packer, for this kind referral. Jagdish Durán M.D. DR: CONRADO JOB#: [id number] CC: Musa Packer M.D.; Fax#: [phone]
--- NOTE | 2017-05-24 03:30 | Discharge Summary ---
DATE OF ADMISSION: 05/22/2017 DATE OF DISCHARGE: 05/23/2017 CHIEF COMPLAINT: Abdominal pain, nausea, and vomiting. HISTORY OF PRESENT ILLNESS: This is a 56-year-old -[place] male who was admitted with above symptoms. He has a history of tongue cancer and is status post chemotherapy and radiation. He had also had a G-tube. The patient was being tapered off his narcotics at home. HOSPITAL COURSE: The patient was started on clear liquid diet. He is on intravenous pain medications. His symptoms improved rapidly. His diet was advanced to regular diet. The day after his admission, he wanted to go home and he was able to eat without any problem. The patient was discharged home in stable condition. DISCHARGE DIAGNOSES: 1. Acute gastritis. 2. History of tongue cancer. DISCHARGE MEDICATIONS: Please refer to discharge medication list. Musa Packer M.D. DR: NANCIE JOB#: [id number] CC:
== END 2017-05-23 19:20 | disposition home or self-care (01) | DRG 392 ==
LOC: EMR 12:04 → 4E 12:10 → EDBEDREQ 13:50
DX: K29.70 Gastritis, unspecified, without bleeding (principal); I10 Essential (primary) hypertension; Z85.810 Personal history of malignant neoplasm of tongue; Z92.3 Personal history of irradiation; F10.21 Alcohol dependence, in remission; F17.200 Nicotine dependence, unspecified, uncomplicated; K57.90 Diverticulosis of intestine, part unspecified, without perforation or abscess without bleeding
CPT/HCPCS: 36415; 74177; 80048; 80053; 81003; 83605; 85025; 87040; 93005; 99285; J2405

== ENCOUNTER 2017-07-13 07:41 | Inpatient (IN) | payer BC ==
[~2017-07-13] VITALS: Ht 172.7 cm; Wt 77.1 kg
[2017-07-13] MEDS ORDERED: Naloxone 0.4mg/ml Inj ONE (07:51)
[2017-07-13] MEDS ORDERED: MAGNESIUM400 M1 PO (07:58)
[2017-07-13] MEDS ORDERED: METHADONE HCL5 MG PO (07:58)
[2017-07-13] MEDS ORDERED: OMEPRAZOLE40 M1 ORAL (07:58)
[2017-07-13 08:00] VITALS: BP 82/52
[2017-07-13] MEDS ORDERED: Naloxone 0.4mg/ml Inj IVP ONE (08:00)
--- NOTE | 2017-07-13 08:17 | Emergency Room Report ---
History of Present Illness General Chief Complaint: Altered Level of Consciousness Source: Patient, Family Member, EMS Present Illness HPI 56-year-old male, a history of throat and lymph node cancer her sister, psych history on Seroquel, presenting with altered mental status and unresponsiveness. EMS and sister state that this morning sister tried to wake the patient for 2 hours, patient was not waking up. EMS stated that patient's vitals were normal on the way to the emergency room. Upon arrival, patient not responsive, no history able to be obtained, however patient hypoxic and bradypneic with pinpoint pupils. 0.4 mg Narcan given with inc responsiveness when pt more awake, denies taking any drugs although sister and state there is methadone and seroquel at home. he denies si/hi. pt also with COPD, current smoker, states he has an inhaler at home but doesnt use it no hx of dvt/PE Allergies: Coded Allergies: No Known Allergies (Unverified , 09/20/15) Patient History Past Medical History: see triage record Past Surgical History: none Pertinent Family History: none Reviewed Nursing Documentation: PMH: Agreed, PSxH: Agreed Nursing Documentation-PMH Hx Cardiac Problems: Yes Hx Hypertension: Yes Hx Gastrointestinal Problems: Yes - abdominal pain Hx Neurological Problems: No Review of Systems All Other Systems: negative except mentioned in HPI Physical Exam Vital Signs Date Time Temp Pulse Resp B/P (MAP) Pulse Ox O2 Delivery O2 Flow Rate FiO2 07/13/17 07:36 128 20 114/77 Room Air Sp02 EP Interpretation: abnormal General Appearance: other - lethargic, bradypneic, unresponsive Head: normocephalic, atraumatic Eyes: bilateral eye normal inspection, bilateral eye PERRL, bilateral eye EOMI ENT: normal ENT inspection, normal pharynx, normal voice, moist mucus membranes Neck: normal inspection, full range of motion, supple Respiratory: other - wheezing/coarse b/s b/l, low O2 sat, bradypneic Cardiovascular #1: normal inspection, regular rate, rhythm, normal capillary refill Cardiovascular #2: 2+ radial (R), 2+ radial (L) Gastrointestinal: normal inspection, non tender, soft, non-distended, no guarding Musculoskeletal: normal inspection, back normal, normal range of motion, non- tender Neurologic: other - responds to pain only, moves ext sopnt Psychiatric: other - not resp Skin: normal inspection, normal color, no rash, warm/dry, well hydrated, normal turgor Procedures Critical Care Time Critical Care Time 40 minutes of CC time 56-year-old male, altered mental status VS: Hypoxic and bradypneic PLAN: IV access, labs, Narcan, nebulizer Anticipate admission to Tele vs. BECKY CC time also includes review of labs, review of EMR, discussion with family and paperwork from SNF, d/w hospitalist CC could include dosing of pressors, additional Abx CC time does not include procedures Medical Decision Making Diagnostic Impression: Primary Impression: Altered level of consciousness Additional Impressions: COPD exacerbation Elevated troponin Renal failure ER Course 56-year-old male, unresponsive DDX: Electrolyte disturbance, toxic overdose, ACS, COPD exacerbation Plan: Obtain labs, ua, EKG, CXR Narcan ER course: Patient initially hypoxic and decreased breathing, given 0.4 mg Narcan, improvement of symptoms. Patient still hypoxic on room air and intermittently sleepy, O2 sat decreases when sleeping. To mid 80s. Placed on nonrebreather awake now, but still hypoxic with sob nebs given ABG drawn - pt hypercarbic abx given for copd exacerbation patient feels much better after nebs speaking in complete sentences with famiyl at bedside elevated trop - ASA given. possibly likely 2/2 to renal failure, pt not c/o pain Disposition: Patient is to be admitted to Tele D/W hospitalist Dr Packer Please note that this Emergency Department Report was dictated using [employer] therapy technician technology software, occasionally this can lead to erroneous entry secondary to interpretation by the dictation equipment. EKG Diagnostic Results EP Interpretation: Yes Rate: normal Rhythm: NSR ST Segments: No acute changes ASA given to patient: No Rhythm Strip EP Interpretation: Yes Rate: 100 Rhythm: NSR, no PVCs, no ectopy Chest X-ray CXR: Ordered: Yes 1 view Indication: sob EP interpretation: Yes Interpretation: No consolidation, no effusion, no PTX, no acute cardiopulmonary disease Impression: No acute disease Electronically signed by Cherry Stone MD Laboratory Tests Test 07/13/17 08:30 07/13/17 08:39 07/13/17 09:35 White Blood Count 14.7 K/UL (4.8-10.8) H Red Blood Count 2.90 M/UL (4.70-6.10) L Hemoglobin 9.1 G/DL (14.2-18.0) L Hematocrit 28.7 % (42.0-52.0) L Mean Corpuscular Volume 99 FL (80-99) Mean Corpuscular Hemoglobin 31.4 PG (27.0-31.0) H Mean Corpuscular Hemoglobin Concent 31.8 G/DL (32.0-36.0) L Red Cell Distribution Width 13.4 % (11.6-14.8) Platelet Count 239 K/UL (150-450) Mean Platelet Volume 5.9 FL (6.5-10.1) L Neutrophils (%) (Auto) % (45.0-75.0) Lymphocytes (%) (Auto) % (20.0-45.0) Monocytes (%) (Auto) % (1.0-10.0) Eosinophils (%) (Auto) % (0.0-3.0) Basophils (%) (Auto) % (0.0-2.0) Differential Total Cells Counted 100 Neutrophils % (Manual) 88 % (45-75) H Lymphocytes % (Manual) 9 % (20-45) L Monocytes % (Manual) 2 % (1-10) Eosinophils % (Manual) 0 % (0-3) Basophils % (Manual) 0 % (0-2) Band Neutrophils 1 % (0-8) Platelet Estimate Adequate Platelet Morphology Normal Red Blood Cell Morphology Normal Sodium Level 141 MMOL/L (136-145) Potassium Level 4.9 MMOL/L (3.5-5.1) Chloride Level 102 MMOL/L (98-107) Carbon Dioxide Level 24 MMOL/L (21-32) Anion Gap 15 mmol/L (5-15) Blood Urea Nitrogen 23 mg/dL (7-18) H Creatinine 2.4 MG/DL (0.55-1.30) H Estimate Glomerular Filtration Rate 33.9 mL/min (>60) Glucose Level 110 MG/DL (74-106) H Calcium Level 8.6 MG/DL (8.5-10.1) Total Bilirubin 0.3 MG/DL (0.2-1.0) Aspartate Amino Transferase (AST) 144 U/L (15-37) H Alanine Aminotransferase (ALT) 46 U/L (12-78) Alkaline Phosphatase 64 U/L (46-116) Troponin I 0.304 ng/mL (0.000-0.056) Total Protein 6.5 G/DL (6.4-8.2) Albumin 3.2 G/DL (3.4-5.0) L Globulin 3.3 g/dL Albumin/Globulin Ratio 1.0 (1.0-2.7) Salicylates Level 5.1 ug/mL (2.8-20) Acetaminophen Level < 2 MCG/ML (10-30) L Serum Alcohol < 3 mg/dL Urine Color Yellow Urine Appearance Slightly cloudy Urine pH 6 (4.5-8.0) Urine Specific [place] 1.020 (1.005-1.035) Urine Protein 2+ (NEGATIVE) H Urine Glucose (UA) Negative (NEGATIVE) Urine Ketones Negative (NEGATIVE) Urine Occult Blood 2+ (NEGATIVE) H Urine Nitrite Negative (NEGATIVE) Urine Bilirubin Negative (NEGATIVE) Urine Urobilinogen Normal MG/DL (0.0-1.0) Urine Leukocyte Esterase 1+ (NEGATIVE) H Urine RBC 5-10 /HPF (0 - 0) H Urine WBC 2-4 /HPF (0 - 0) Urine Squamous Epithelial Cells Few /LPF (NONE/OCC) Urine Bacteria Few /HPF (NONE) Urine Hyaline Casts 2-4 /LPF (NONE) H Urine Opiates Screen Negative (NEGATIVE) Urine Barbiturates Screen Negative (NEGATIVE) Phencyclidine (PCP) Screen Negative (NEGATIVE) Urine Amphetamines Screen Negative (NEGATIVE) Urine Benzodiazepines Screen Negative (NEGATIVE) Urine Cocaine Screen Negative (NEGATIVE) Urine Marijuana (THC) Screen Negative (NEGATIVE) Arterial Blood pH 7.260 (7.350-7.450) Arterial Blood Partial Pressure CO2 52.2 mmHg (35.0-45.0) H Arterial Blood Partial Pressure O2 96.9 mmHg (75.0-100.0) Arterial Blood HCO3 22.9 mmol/L (22.0-26.0) Arterial Blood Oxygen Saturation 95.9 % (92.0-98.0) Arterial Blood Base Excess -4.1 Anand Test Positive Last Vital Signs Date Time Temp Pulse Resp B/P (MAP) Pulse Ox O2 Delivery O2 Flow Rate FiO2 07/13/17 07:36 128 20 114/77 Room Air Disposition: ADMITTED INPATIENT Condition: Critical Referrals: NOT CHOSEN IPA/MD,REFERRING (PCP) Retino,Clairose M.D. Jul 13, 2017 08:17
[2017-07-13 08:30] VITALS: BP 112/81
[2017-07-13 08:47] LABS: HEMATOCRIT 28.7 % (42.0-52.0); HEMOGLOBIN 9.1 G/DL (14.2-18.0); MEAN CORPUSCULAR VOLUME 99 FL (80-99); PLATELET COUNT 239 K/UL (150-450); RED CELL DISTRIBUTION WIDTH 13.4 % (11.6-14.8); WHITE BLOOD COUNT 14.7 K/UL (4.8-10.8)
[2017-07-13 08:53] LABS: BILIRUBIN, URINE NEGATIVE (NEGATIVE); COLOR,URINE YELLOW; GLUCOSE, URINE (UA) NEGATIVE (NEGATIVE); KETONES,URINE NEGATIVE (NEGATIVE); LEUKOCYTE ESTERASE ,URINE 1+ (NEGATIVE); NITRITE,URINE NEGATIVE (NEGATIVE); PH,URINE 6 (4.5-8.0); PROTEIN,URINE 2+ (NEGATIVE); UROBILINOGEN,URINE NORMAL MG/DL (0.0-1.0)
[2017-07-13 08:56] LABS: APPEARANCE,URINE SLIGHTLY CLOUDY
[2017-07-13 09:09] LABS: ANION GAP 15 mmol/L (5-15); BLOOD UREA NITROGEN 23 mg/dL (7-18); CALCIUM 8.6 MG/DL (8.5-10.1); CARBON DIOXIDE 24 MMOL/L (21-32); CHLORIDE 102 MMOL/L (98-107); CREATININE 2.4 MG/DL (0.55-1.30); POTASSIUM 4.9 MMOL/L (3.5-5.1); SODIUM 141 MMOL/L (136-145)
[2017-07-13 09:13] LABS: ALANINE AMINOTRANSFERASE 46 U/L (12-78); ALBUMIN 3.2 G/DL (3.4-5.0); ALKALINE PHOSPHATASE 64 U/L (46-116); ASPARTATE AMINO TRANSFERASE 144 U/L (15-37); BILIRUBIN,TOTAL 0.3 MG/DL (0.2-1.0)
[2017-07-13] MEDS: Ipratropium 0.02% Inh Soln 2.5ml UD HHN SCH ×2 (09:21→09:22)
[2017-07-13] MEDS: Albuterol ud Inhalation HHN SCH ×2 (09:21→09:22)
[2017-07-13] MEDS ORDERED: Azithromycin 500mg Inj IV ONE (09:57)
[2017-07-13] MEDS ORDERED: Azithromycin 500 MG in D5W 275 ML IVPB ONE (10:00)
--- NOTE | 2017-07-13 10:11 | Diagnostic Imaging Report ---
Indication: Dyspnea Comparison: 03/08/2007 A single view chest radiograph was obtained. Findings: Some vascular prominence demonstrated essentially. The heart is borderline in size. No obvious interstitial or airspace opacities are identified. IMPRESSION: Central vascular prominence without overt CHF
[2017-07-13 11:21] VITALS: BP 89/58
[2017-07-13] MEDS: Albuterol/Ipratropium 3ml neb HHN SCH ×2 (14:41→19:25)
[2017-07-13 16:00] VITALS: BP 110/78
--- NOTE | 2017-07-13 16:20 | History & Physical ---
History and Physical History & Physicial HP dictated # [id number] GERMANIA MIMS Jul 13, 2017 16:20
--- NOTE | 2017-07-13 16:40 | Cardiac Electrophysiology PN ---
Subjective Subjective Dictated [id number] Objective Last 24 Hour Vital Signs Date Time Temp Pulse Resp B/P (MAP) Pulse Ox O2 Delivery O2 Flow Rate FiO2 07/13/17 16:00 97.3 96 20 110/78 98 Nasal Cannula 4.0 07/13/17 14:45 95 14 95 Nasal Cannula 4.0 36 07/13/17 14:35 95 14 92 Nasal Cannula 4.0 36 07/13/17 12:00 109 07/13/17 11:21 97.7 111 20 89/58 98 Nasal Cannula 4.0 07/13/17 10:35 98.7 112 12 112/81 97 Nasal Cannula 4.0 98.9 07/13/17 09:32 113 12 99 Non-Rebreather 15.0 100 07/13/17 09:28 113 13 98 Non-Rebreather 15.0 100 07/13/17 09:28 100 07/13/17 09:20 114 10 100 Non-Rebreather 15.0 100 07/13/17 09:20 100 07/13/17 09:20 115 8 100 Non-Rebreather 15.0 100 07/13/17 09:15 100 07/13/17 09:15 115 10 Non-Rebreather 15.0 100 07/13/17 09:15 115 10 100 Non-Rebreather 15.0 100 07/13/17 09:15 115 10 100 Non-Rebreather 15.0 100 07/13/17 08:30 98.9 120 13 112/81 100 Non-Rebreather 15.0 98.9 07/13/17 08:00 98.3 135 13 82/52 87 Room Air 98.3 07/13/17 07:36 128 20 114/77 Room Air Laboratory Tests Test 07/13/17 08:30 07/13/17 08:39 07/13/17 09:35 White Blood Count 14.7 K/UL (4.8-10.8) H Red Blood Count 2.90 M/UL (4.70-6.10) L Hemoglobin 9.1 G/DL (14.2-18.0) L Hematocrit 28.7 % (42.0-52.0) L Mean Corpuscular Volume 99 FL (80-99) Mean Corpuscular Hemoglobin 31.4 PG (27.0-31.0) H Mean Corpuscular Hemoglobin Concent 31.8 G/DL (32.0-36.0) L Red Cell Distribution Width 13.4 % (11.6-14.8) Platelet Count 239 K/UL (150-450) Mean Platelet Volume 5.9 FL (6.5-10.1) L Neutrophils (%) (Auto) % (45.0-75.0) Lymphocytes (%) (Auto) % (20.0-45.0) Monocytes (%) (Auto) % (1.0-10.0) Eosinophils (%) (Auto) % (0.0-3.0) Basophils (%) (Auto) % (0.0-2.0) Differential Total Cells Counted 100 Neutrophils % (Manual) 88 % (45-75) H Lymphocytes % (Manual) 9 % (20-45) L Monocytes % (Manual) 2 % (1-10) Eosinophils % (Manual) 0 % (0-3) Basophils % (Manual) 0 % (0-2) Band Neutrophils 1 % (0-8) Platelet Estimate Adequate Platelet Morphology Normal Red Blood Cell Morphology Normal Sodium Level 141 MMOL/L (136-145) Potassium Level 4.9 MMOL/L (3.5-5.1) Chloride Level 102 MMOL/L (98-107) Carbon Dioxide Level 24 MMOL/L (21-32) Anion Gap 15 mmol/L (5-15) Blood Urea Nitrogen 23 mg/dL (7-18) H Creatinine 2.4 MG/DL (0.55-1.30) H Estimat Glomerular Filtration Rate 33.9 mL/min (>60) Glucose Level 110 MG/DL (74-106) H Calcium Level 8.6 MG/DL (8.5-10.1) Total Bilirubin 0.3 MG/DL (0.2-1.0) Aspartate Amino Transf (AST/SGOT) 144 U/L (15-37) H Alanine Aminotransferase (ALT/SGPT) 46 U/L (12-78) Alkaline Phosphatase 64 U/L (46-116) Troponin I 0.304 ng/mL (0.000-0.056) Total Protein 6.5 G/DL (6.4-8.2) Albumin 3.2 G/DL (3.4-5.0) L Globulin 3.3 g/dL Albumin/Globulin Ratio 1.0 (1.0-2.7) Salicylates Level 5.1 ug/mL (2.8-20) Acetaminophen Level < 2 MCG/ML (10-30) L Serum Alcohol < 3 mg/dL Urine Color Yellow Urine Appearance Slightly cloudy Urine pH 6 (4.5-8.0) Urine Specific [place] 1.020 (1.005-1.035) Urine Protein 2+ (NEGATIVE) H Urine Glucose (UA) Negative (NEGATIVE) Urine Ketones Negative (NEGATIVE) Urine Occult Blood 2+ (NEGATIVE) H Urine Nitrite Negative (NEGATIVE) Urine Bilirubin Negative (NEGATIVE) Urine Urobilinogen Normal MG/DL (0.0-1.0) Urine Leukocyte Esterase 1+ (NEGATIVE) H Urine RBC 5-10 /HPF (0 - 0) H Urine WBC 2-4 /HPF (0 - 0) Urine Squamous Epithelial Cells Few /LPF (NONE/OCC) Urine Bacteria Few /HPF (NONE) Urine Hyaline Casts 2-4 /LPF (NONE) H Urine Opiates Screen Negative (NEGATIVE) Urine Barbiturates Screen Negative (NEGATIVE) Phencyclidine (PCP) Screen Negative (NEGATIVE) Urine Amphetamines Screen Negative (NEGATIVE) Urine Benzodiazepines Screen Negative (NEGATIVE) Urine Cocaine Screen Negative (NEGATIVE) Urine Marijuana (THC) Screen Negative (NEGATIVE) Arterial Blood pH 7.260 (7.350-7.450) Arterial Blood Partial Pressure CO2 52.2 mmHg (35.0-45.0) H Arterial Blood Partial Pressure O2 96.9 mmHg (75.0-100.0) Arterial Blood HCO3 22.9 mmol/L (22.0-26.0) Arterial Blood Oxygen Saturation 95.9 % (92.0-98.0) Arterial Blood Base Excess -4.1 Anand Test Positive LUISANA SHAFFER Jul 13, 2017 16:40
[2017-07-13] MEDS ORDERED: Lidocaine 2% Visc 15ml soln ORAL PRN (16:45)
[2017-07-13] MEDS: Lidocaine 2% Visc 15ml soln ORAL SCH (17:28)
[2017-07-13] MEDS ORDERED: Promethazine/Codeine 5ml UD ORAL PRN (17:30)
--- NOTE | 2017-07-13 17:31 | Consultation ---
History of Present Illness General Date patient seen: Jul 13, 2017 Chief Complaint: Altered Level of Consciousness Referring physician: Dr. Packer Reason for Consultation: Dyspnea Present Illness HPI 56-year-old male, a history of throat and lymph node cancer her sister, psych history on Seroquel, presenting with altered mental status and unresponsiveness. EMS and sister state that this morning sister tried to wake the patient for 2 hours, patient was not waking up. EMS stated that patient's vitals were normal on the way to the emergency room. Upon arrival, patient not responsive, patient hypoxic and bradypneic with pinpoint pupils. 0.4 mg Narcan given with immediate responsiveness. Pt is admitted for further evaluation. Allergies: Coded Allergies: No Known Allergies (Unverified , 09/20/15) Medication History Scheduled Amlodipine Besylate (Norvasc), 5 MG ORAL DAILY, (Reported) Benazepril Hcl* (Benazepril Hcl*), 10 MG ORAL DAILY, (Reported) Famotidine (Pepcid), 20 MG ORAL DAILY Gabapentin* (Gabapentin*), 300 MG ORAL THREE TIMES A DAY, (Reported) Lidocaine HCl 2% Viscous (Lidocaine HCl 2% Viscous), 15 ML ORAL FOUR TIMES A DAY , (Reported) Lidocaine HCl 2% Viscous (Lidocaine HCl 2% Viscous), 10 ML ORAL QID Magnesium Oxide (Magnesium), 400 MG PO BID, (Reported) Methadone Hcl* (Methadone*), Unknown Dose PO DAILY, (Reported) Naltrexone Hcl (Naltrexone Hcl), 50 MG PO DAILY, (Reported) Naproxen* (Naproxen*), 500 MG ORAL TWICE A DAY, (Reported) Omeprazole (Omeprazole), 40 MG ORAL DAILY, (Reported) Pantoprazole* (Protonix*), 40 MG ORAL DAILY, (Reported) Quetiapine Fumarate* (Seroquel*), 25 MG ORAL DAILY, (Reported) Scheduled PRN Hydrocodone Bit/Acetaminophen 5-325* ([place] 5-325*), 1 TAB ORAL Q6H PRN for For Pain Hydrocodone Bit/Acetaminophen 5-325* ([place] 5-325*), 1 TAB ORAL Q6H PRN for For Pain Ondansetron Odt* (Zofran Odt*), 4 MG ORAL Q8H PRN for Nausea & Vomiting Miscellaneous Medications OXYCODONE HCl* (Roxicodone*), 10 MG ORAL, (Reported) Patient History Healthcare decision maker Resuscitation status Full Code Advanced Directive on File Past Medical/Surgical History Past Medical/Surgical History: (1) History of throat cancer Review of Systems All Other Systems: negative except mentioned in HPI Physical Exam General Appearance: WD/WN Lines, tubes and drains: peripheral HEENT: normocephalic, atraumatic Neck: non-tender, normal alignment Respiratory/Chest: chest wall non-tender, lungs clear Breasts: no masses Cardiovascular/Chest: normal peripheral pulses Abdomen: normal bowel sounds, non tender Genitourinary/Rectal: normal genital exam Extremities: normal range of motion Last 24 Hour Vital Signs Date Time Temp Pulse Resp B/P (MAP) Pulse Ox O2 Delivery O2 Flow Rate FiO2 07/13/17 16:00 97.3 96 20 110/78 98 Nasal Cannula 4.0 07/13/17 16:00 97 07/13/17 14:45 95 14 95 Nasal Cannula 4.0 36 07/13/17 14:35 95 14 92 Nasal Cannula 4.0 36 07/13/17 12:00 109 07/13/17 11:21 97.7 111 20 89/58 98 Nasal Cannula 4.0 07/13/17 10:35 98.7 112 12 112/81 97 Nasal Cannula 4.0 98.9 07/13/17 09:32 113 12 99 Non-Rebreather 15.0 100 07/13/17 09:28 113 13 98 Non-Rebreather 15.0 100 07/13/17 09:28 100 07/13/17 09:20 114 10 100 Non-Rebreather 15.0 100 07/13/17 09:20 100 07/13/17 09:20 115 8 100 Non-Rebreather 15.0 100 07/13/17 09:15 100 07/13/17 09:15 115 10 Non-Rebreather 15.0 100 07/13/17 09:15 115 10 100 Non-Rebreather 15.0 100 07/13/17 09:15 115 10 100 Non-Rebreather 15.0 100 07/13/17 08:30 98.9 120 13 112/81 100 Non-Rebreather 15.0 98.9 07/13/17 08:00 98.3 135 13 82/52 87 Room Air 98.3 07/13/17 07:36 128 20 114/77 Room Air Laboratory Tests Test 07/13/17 08:30 07/13/17 08:39 07/13/17 09:35 White Blood Count 14.7 K/UL (4.8-10.8) H Red Blood Count 2.90 M/UL (4.70-6.10) L Hemoglobin 9.1 G/DL (14.2-18.0) L Hematocrit 28.7 % (42.0-52.0) L Mean Corpuscular Volume 99 FL (80-99) Mean Corpuscular Hemoglobin 31.4 PG (27.0-31.0) H Mean Corpuscular Hemoglobin Concent 31.8 G/DL (32.0-36.0) L Red Cell Distribution Width 13.4 % (11.6-14.8) Platelet Count 239 K/UL (150-450) Mean Platelet Volume 5.9 FL (6.5-10.1) L Neutrophils (%) (Auto) % (45.0-75.0) Lymphocytes (%) (Auto) % (20.0-45.0) Monocytes (%) (Auto) % (1.0-10.0) Eosinophils (%) (Auto) % (0.0-3.0) Basophils (%) (Auto) % (0.0-2.0) Differential Total Cells Counted 100 Neutrophils % (Manual) 88 % (45-75) H Lymphocytes % (Manual) 9 % (20-45) L Monocytes % (Manual) 2 % (1-10) Eosinophils % (Manual) 0 % (0-3) Basophils % (Manual) 0 % (0-2) Band Neutrophils 1 % (0-8) Platelet Estimate Adequate Platelet Morphology Normal Red Blood Cell Morphology Normal Sodium Level 141 MMOL/L (136-145) Potassium Level 4.9 MMOL/L (3.5-5.1) Chloride Level 102 MMOL/L (98-107) Carbon Dioxide Level 24 MMOL/L (21-32) Anion Gap 15 mmol/L (5-15) Blood Urea Nitrogen 23 mg/dL (7-18) H Creatinine 2.4 MG/DL (0.55-1.30) H Estimat Glomerular Filtration Rate 33.9 mL/min (>60) Glucose Level 110 MG/DL (74-106) H Calcium Level 8.6 MG/DL (8.5-10.1) Total Bilirubin 0.3 MG/DL (0.2-1.0) Aspartate Amino Transf (AST/SGOT) 144 U/L (15-37) H Alanine Aminotransferase (ALT/SGPT) 46 U/L (12-78) Alkaline Phosphatase 64 U/L (46-116) Troponin I 0.304 ng/mL (0.000-0.056) Total Protein 6.5 G/DL (6.4-8.2) Albumin 3.2 G/DL (3.4-5.0) L Globulin 3.3 g/dL Albumin/Globulin Ratio 1.0 (1.0-2.7) Salicylates Level 5.1 ug/mL (2.8-20) Acetaminophen Level < 2 MCG/ML (10-30) L Serum Alcohol < 3 mg/dL Urine Color Yellow Urine Appearance Slightly cloudy Urine pH 6 (4.5-8.0) Urine Specific [place] 1.020 (1.005-1.035) Urine Protein 2+ (NEGATIVE) H Urine Glucose (UA) Negative (NEGATIVE) Urine Ketones Negative (NEGATIVE) Urine Occult Blood 2+ (NEGATIVE) H Urine Nitrite Negative (NEGATIVE) Urine Bilirubin Negative (NEGATIVE) Urine Urobilinogen Normal MG/DL (0.0-1.0) Urine Leukocyte Esterase 1+ (NEGATIVE) H Urine RBC 5-10 /HPF (0 - 0) H Urine WBC 2-4 /HPF (0 - 0) Urine Squamous Epithelial Cells Few /LPF (NONE/OCC) Urine Bacteria Few /HPF (NONE) Urine Hyaline Casts 2-4 /LPF (NONE) H Urine Opiates Screen Negative (NEGATIVE) Urine Barbiturates Screen Negative (NEGATIVE) Phencyclidine (PCP) Screen Negative (NEGATIVE) Urine Amphetamines Screen Negative (NEGATIVE) Urine Benzodiazepines Screen Negative (NEGATIVE) Urine Cocaine Screen Negative (NEGATIVE) Urine Marijuana (THC) Screen Negative (NEGATIVE) Arterial Blood pH 7.260 (7.350-7.450) Arterial Blood Partial Pressure CO2 52.2 mmHg (35.0-45.0) H Arterial Blood Partial Pressure O2 96.9 mmHg (75.0-100.0) Arterial Blood HCO3 22.9 mmol/L (22.0-26.0) Arterial Blood Oxygen Saturation 95.9 % (92.0-98.0) Arterial Blood Base Excess -4.1 Anand Test Positive Height (Feet): 5 Height (Inches): 8.00 Weight (Pounds): 170 Medications Current Medications Medications (Trade) Dose Ordered Sig/Mary Route PRN Reason Start Time Stop Time Status Last Admin Dose Admin Albuterol/ Ipratropium (Albuterol/ Ipratropium) 3 ml Q6HRT HHN 07/13/17 13:00 07/18/17 12:59 07/13/17 14:41 Aspirin (ASA) 81 mg DAILY ORAL 07/14/17 09:00 08/13/17 08:59 Lidocaine HCl (Xylocaine Viscous) 15 ml BEFORE MEALS ORAL 07/13/17 17:15 08/12/17 17:14 Metoprolol Tartrate (Lopressor) 25 mg EVERY 12 HOURS ORAL 07/13/17 21:00 08/12/17 20:59 Assessment/Plan Problem List: (1) COPD exacerbation ICD Codes: J44.1 - Chronic obstructive pulmonary disease with (acute) exacerbation SNOMED: 380381777, 389754609, 525874383 (2) Altered level of consciousness ICD Codes: R40.4 - Transient alteration of awareness SNOMED: 4837381 (3) History of throat cancer ICD Codes: Z85.819 - Personal history of malignant neoplasm of unspecified site of lip, oral cavity, and pharynx SNOMED: 291549376 (4) Throat pain ICD Codes: R07.0 - Pain in throat SNOMED: 707333428 Assessment/Plan respiratory treatment check sputum check cultures pain management. CAROL MATOS Jul 13, 2017 17:31
[2017-07-13 20:00] VITALS: BP 97/66
[2017-07-13] MEDS: Metoprolol 25mg tab ORAL SCH (20:45)
[2017-07-13] MEDS: Theophylline ER 100mg ORAL SCH (20:57)
--- NOTE | 2017-07-13 22:00 | Consultation ---
DATE OF CONSULTATION: 07/13/2017 CARDIOLOGY CONSULTATION REFERRING PHYSICIAN: Musa Packer M.D. REASON FOR CONSULTATION: Tachycardia as well as elevated troponin. HISTORY OF PRESENT ILLNESS: The patient is a 56-year-old, gentleman with history of throat and tongue cancer, who has had undergone chemotherapy and radiation before. The patient also found cancer in his left arm as well as right side of his neck and he is supposed to have surgery done. The patient also has history of psych, on Seroquel. He was brought to the emergency room for altered mental status and unresponsiveness. Per paramedics and his sister, they could not wake the patient for about two hours. The EMS, however, stated that the vital signs were stable the emergency room. The patient was hypoxic and bradycardic in the ER and was unresponsive with pinpoint pupils. Narcan that increased unresponsiveness. The patient was admitted to the floor. At the time of my evaluation, the patient is alert and responsive, but he goes in and out of consciousness. PAST MEDICAL HISTORY: Includes; 1. Hypertension. 2. History of throat and tongue cancer. SOCIAL HISTORY: He lives at home. Does not smoke or drink alcohol. FAMILY HISTORY: Noncontributory. REVIEW OF SYSTEMS: Negative other than what was mentioned in the history of present illness. The patient knew that he is at [facility] and is able to communicate, but then falls back to sleep. PHYSICAL EXAMINATION: VITAL SIGNS: Blood pressure is 110/78, pulse 96, respirations 18, and temperature 97.3 degrees. HEAD AND NECK: Showed no JVD. There is lymphadenopathy on the right side of his neck. LUNGS: Clear. CARDIOVASCULAR: Shows regular S1 and S2 with no gallop or murmur. ABDOMEN: Soft. EXTREMITIES: There is no pitting edema. LABORATORY DATA: Show white count 14.7, hemoglobin 9.1, hematocrit 28.7, and platelet of 279,000. Sodium 141, potassium 4.9, BUN of 22, creatinine of 2.4, and glucose of 110. Troponin is 0.304. Urine toxicology screen is negative. ASSESSMENT AND PLAN: 1. Elevated troponin of 0.304. This is likely due to renal failure. The patient has creatinine of 2.4. He denies any chest pain at this time. We will completely rule out myocardial infarction protocol. We will get an echocardiogram. The patient on aspirin, beta-jennifer, and statins. Definitely troponins are available. Echocardiogram is also pending. 2. History of hypertension. Put the patient on a small dose of beta-jennifer. 3. Throat cancer, status post radiation and chemotherapy. Further evaluation by Hematology. Thank you very much Dr. Packer for allowing me to participate in the care of this patient. Please do not hesitate to contact me for any questions regarding my evaluation. Nadeem Delcid M.D. DR: Abdi JOB#: [id number] CC:
--- NOTE | 2017-07-13 22:15 | History and Physical Report ---
DATE OF ADMISSION: 07/13/2017 CHIEF COMPLAINT: The patient was found to be unresponsive at home. HISTORY OF PRESENT ILLNESS: This is a 56-year-old male with history of throat cancer involving also the lymph nodes. The patient's tried to wake him up around 3:45 a.m. because he had an appointment with his oncologist at [facility]; however, she was unable to wake him up. This went on for a few hours and she tried repeatedly to wake him up and finally, she called 911. The patient was brought into the emergency room around 8 a.m. and according to ER physician, the patient had pinpoint pupils and there was a concern the patient may have overdosed on narcotics and he was given some Narcan and the patient became more responsive. Note that the patient tells me that he is usually on methadone and he states that he took six methadone tablets yesterday and I am assuming it is 10 mg tablet, however, the family states he is not reliable in terms of history. PAST MEDICAL HISTORY: Includes also history of COPD and he has been a smoker for long time and he still continues to smoke half a pack a day. History of hypertension. MEDICATIONS: Reviewed in EMR. ALLERGIES: No known drug allergies. REVIEW OF SYSTEMS: Noncontributory. PHYSICAL EXAMINATION: GENERAL: The patient is a 56-year-old male, in no acute distress. VITAL SIGNS: Blood pressure 114/77, pulse 128, and respiratory rate is 20. HEENT: [place] conjunctivae. Anicteric sclerae. NECK: Supple. LUNGS: Clear to auscultation. HEART: S1 and S2 without murmurs or rubs. ABDOMEN: Soft and nontender. EXTREMITIES: No cyanosis or edema. LABORATORY FINDINGS: The chemistry panel shows serum sodium 141, potassium 4.9, chloride 102, CO2 24, BUN is 23, creatinine 2.4, glucose 110, and calcium is 8.6. The patient had an ABG, which showed pH of 7.26, pCO2 of 52, and pO2 of 97. ASSESSMENT: This is a 56-year-old male, who was admitted with methadone overdose and he responded to Narcan. To note that, the patient's opiate screen was negative in the urine, however, methadone is not something they usually test. PLAN: The patient will be on respiratory treatments. He has acute renal failure possibly as a result of prerenal azotemia. Also, he will be hydrated. His labs will be followed and further adjustment will be made in the patient's regimen. Musa Packer M.D. DR: Shaheed JOB#: [id number] CC:
[2017-07-14] VITALS: BP 90/55
[2017-07-14 00:30] VITALS: BP 93/66
[2017-07-14] MEDS: Albuterol/Ipratropium 3ml neb HHN SCH ×2 (01:22→07:43)
[2017-07-14 04:00] VITALS: BP 95/72
[2017-07-14] MEDS: Lidocaine 2% Visc 15ml soln ORAL SCH (06:19)
[2017-07-14 08:00] VITALS: BP 121/80
[2017-07-14] MEDS: Aspirin Baby 81mg ORAL SCH ×2 (08:24→08:30)
[2017-07-14] MEDS: Metoprolol 25mg tab ORAL SCH ×2 (08:24→08:30)
[2017-07-14] MEDS: Theophylline ER 100mg ORAL SCH ×2 (08:24→08:30)
[2017-07-14 08:26] LABS: CKMB 9.6 NG/ML (0.0-3.6)
[2017-07-14 08:30] VITALS: BP 121/80
[2017-07-14 08:56] LABS: ANION GAP 7 mmol/L (5-15); BLOOD UREA NITROGEN 25 mg/dL (7-18); CALCIUM 8.5 MG/DL (8.5-10.1); CARBON DIOXIDE 29 MMOL/L (21-32); CHLORIDE 105 MMOL/L (98-107); CREATININE 1.7 MG/DL (0.55-1.30); POTASSIUM 4.5 MMOL/L (3.5-5.1); SODIUM 141 MMOL/L (136-145)
--- NOTE | 2017-07-14 18:02 | Pulmonology Progress Note ---
Assessment/Plan Problems: (1) COPD exacerbation (2) Altered level of consciousness (3) History of throat cancer (4) Throat pain Assessment/Plan improving wants to go home has an appointment at [facility] Subjective ROS Limited/Unobtainable: No Allergies: Coded Allergies: No Known Allergies (Unverified , 09/20/15) Objective Last 24 Hour Vital Signs Date Time Temp Pulse Resp B/P (MAP) Pulse Ox O2 Delivery O2 Flow Rate FiO2 07/14/17 08:30 95 121/80 07/14/17 08:00 97.7 95 20 121/80 100 Nasal Cannula 4.0 07/14/17 08:00 90 07/14/17 07:56 89 18 99 Nasal Cannula 4.0 36 07/14/17 07:43 86 18 99 Nasal Cannula 4.0 36 07/14/17 07:43 86 18 Nasal Cannula 4.0 36 07/14/17 04:00 83 07/14/17 04:00 97.7 86 20 95/72 98 Nasal Cannula 4.0 07/14/17 03:20 77 16 98 Facial 35 07/14/17 01:30 97 14 98 Nasal Cannula 4.0 36 07/14/17 01:22 92 14 95 Bi-pap 35 07/14/17 01:22 86 14 Nasal Cannula 4.0 36 07/14/17 00:30 93/66 07/14/17 00:24 86 16 99 Facial 35 07/14/17 00:00 98.2 94 20 90/55 97 Nasal Cannula 4.0 07/14/17 00:00 101 07/13/17 20:45 87 97/66 07/13/17 20:00 97.9 87 20 97/66 95 Nasal Cannula 4.0 07/13/17 20:00 89 07/13/17 19:49 96 12 93 Nasal Cannula 4.0 36 07/13/17 19:25 97 11 95 Nasal Cannula 4.0 36 07/13/17 19:25 101 11 Nasal Cannula 4.0 36 Intake and Output 07/13/17 07/14/17 19:00 07:00 Intake Total 100 ml Output Total 100 ml Balance 0 ml Intake Oral 100 ml Output Emesis 100 ml # Voids 1 General Appearance: WD/WN HEENT: normocephalic Respiratory/Chest: chest wall non-tender, lungs clear Cardiovascular: normal peripheral pulses, normal rate Abdomen: normal bowel sounds, soft, non tender Extremities: no cyanosis 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
--- NOTE | 2017-07-15 14:51 | Discharge Summary ---
Discharge Summary Hospital Course Date of Admission Jul 13, 2017 at 09:38 Date of Discharge Jul 14, 2017 at 11:14 Admitting Diagnosis copd exacerbation HPI Shoaib Michel is a 56 year old male who was admitted on Jul 13, 2017 at 09:38 for [facility] Hospital Course [id number] Discharge Discharge Disposition Patient left AMA Discharge Diagnoses: Olive Reilly NP Jul 15, 2017 14:51
--- NOTE | 2017-07-16 00:15 | Discharge Summary 2 SIG ---
DATE OF ADMISSION: 07/13/2017 DATE OF DISCHARGE: 07/14/2017 CONSULTANTS: 1. Marisa Valentino M.D. 2. Nadeem Delcid M.D. BRIEF HOSPITAL COURSE: The patient is a 56-year-old male with history of throat cancer involving the lymph nodes, who was taken by EMS as the patient was unable to be awakened early in the morning. On evaluation at ED, the patient had pinpoint pupils with improvement with post Narcan administration. He has history of chronic obstructive pulmonary disease and hypertension and is a current smoker. Urine drug screen was negative. On evaluation at ED, he had acute renal failure. Creatinine was 2.4. He was given IV hydration and respiratory treatment. He had mild elevation of troponin 0.304 possibly related to renal failure. He was not complaining of any chest pain. He was placed on aspirin and metoprolol. Chest x-ray done showed central vascular prominence without overt congestive heart failure. Full treatment was not carried out as the patient left against medical advice. FINAL DIAGNOSES: 1. Acute renal failure. 2. Altered level of consciousness/acute toxic encephalopathy. 3. Elevated troponin due to renal failure. 4. Throat cancer status post radiation and chemotherapy. DISPOSITION: The patient left AMA. Musa Packer M.D. I have been assigned to dictate discharge summary on this account and I was not involved in the patient's management. Olive Reilly N.P. DR: JENNIFER JOB#: [id number] CC:
--- NOTE | 2017-07-16 14:48 | Cardiology Report ---
APPROVED REPORT EKG Measurement Heart [id number] Sinus tachycardia Left axis deviation Incomplete right bundle branch block Abnormal ECG
== END 2017-07-14 11:14 | disposition left against medical advice (07) | DRG 682 ==
LOC: EDBD 07:41 → EMR 07:56 → 2E 09:38 → EDBEDREQ 10:09
DX: N17.9 Acute kidney failure, unspecified (principal); G92 Toxic encephalopathy; J44.1 Chronic obstructive pulmonary disease with (acute) exacerbation; R79.89 Other specified abnormal findings of blood chemistry; Z85.819 Personal history of malignant neoplasm of unspecified site of lip, oral cavity, and pharynx; Z92.3 Personal history of irradiation; I10 Essential (primary) hypertension; F17.210 Nicotine dependence, cigarettes, uncomplicated; R00.0 Tachycardia, unspecified; R09.02 Hypoxemia; Z79.891 Long term (current) use of opiate analgesic; Z79.899 Other long term (current) drug therapy; F99 Mental disorder, not otherwise specified
CPT/HCPCS: 36415; 36600; 71045; 80048; 80053; 80307; 80329; 81003; 82550; 82553; 82803; 82962; 83880; 84484; 85007; 85025; 87070; 87081; 87205; 93005; 93306; 94640; 94660; 94664; J2405; J7620

== ENCOUNTER 2017-08-02 11:12 | Inpatient (IN) | payer BC ==
[~2017-08-02] VITALS: Ht 175.3 cm; Wt 68.0 kg
[~2017-08-02 11:12] MED LIST changes: +MAGNESIUM400 M1 PO; +METHADONE HCL5 MG PO; +OMEPRAZOLE40 M1 ORAL
[2017-08-02 11:59] LABS: HEMATOCRIT 37.8 % (42.0-52.0); HEMOGLOBIN 12.3 G/DL (14.2-18.0); MEAN CORPUSCULAR VOLUME 96 FL (80-99); PLATELET COUNT 301 K/UL (150-450); RED BLOOD COUNT 3.93 M/UL (4.70-6.10); RED CELL DISTRIBUTION WIDTH 15.2 % (11.6-14.8); WHITE BLOOD COUNT 16.5 K/UL (4.8-10.8)
[2017-08-02] MEDS ORDERED: Morphine Sulfate 4mg/ml Inj IVP ONE (12:00)
[2017-08-02 12:14] LABS: ANION GAP 23 mmol/L (5-15); BLOOD UREA NITROGEN 31 mg/dL (7-18); CALCIUM 10.3 MG/DL (8.5-10.1); CARBON DIOXIDE 18 MMOL/L (21-32); CHLORIDE 90 MMOL/L (98-107); CREATININE 1.4 MG/DL (0.55-1.30); POTASSIUM 4.4 MMOL/L (3.5-5.1); SODIUM 130 MMOL/L (136-145)
[2017-08-02 12:23] VITALS: BP 158/124
[2017-08-02 12:24] LABS: ALANINE AMINOTRANSFERASE 15 U/L (12-78); ALBUMIN 4.6 G/DL (3.4-5.0); ALKALINE PHOSPHATASE 105 U/L (46-116); ASPARTATE AMINO TRANSFERASE 32 U/L (15-37); BILIRUBIN,DIRECT 0.2 MG/DL (0.0-0.3); BILIRUBIN,TOTAL 1.3 MG/DL (0.2-1.0)
[2017-08-02 13:00] VITALS: BP 167/90
[2017-08-02 14:00] VITALS: BP 153/82
[2017-08-02 15:06] VITALS: BP 160/83
[2017-08-02] MEDS ORDERED: Zolpidem 5mg tab ORAL PRN (17:15)
[2017-08-02] MEDS ORDERED: Milk of Magnesia 30ml Ud ORAL PRN (17:15)
[2017-08-02] MEDS ORDERED: Morphine Sulfate 2mg/ml Inj IVP PRN (17:15)
[2017-08-02] MEDS ORDERED: Morphine Sulfate 4mg/ml Inj IVP PRN (17:15)
[2017-08-02 18:00] VITALS: BP 162/102
[2017-08-02] MEDS ORDERED: Zosyn 3.375gm q8h **Extended infusion IVPB ONE ×2 (18:30)
[2017-08-02] MEDS: D5 1/2NS w/KCl 20mEq 1,000 ML IV SCH (18:53)
[2017-08-02 20:00] VITALS: BP 154/94
--- NOTE | 2017-08-02 21:35 | General Progress Note ---
Assessment/Plan Assessment/Plan Assessment - Larynx CA, S/p chemo and XRT - s/p GT insertion and removal - recurrent N/V - GERD - cholelithiasis - urolithiasis Recommendations - PPI - clears - EGD in am - if EGD negative, will consider HUYEN Thank you Frandy Hamilton Subjective Allergies: Coded Allergies: No Known Allergies (Unverified , 09/20/15) Objective Last 24 Hour Vital Signs Date Time Temp Pulse Resp B/P (MAP) Pulse Ox O2 Delivery O2 Flow Rate FiO2 08/02/17 21:15 98.1 08/02/17 18:00 98.1 115 21 162/102 98 Room Air 98.1 08/02/17 16:00 118 08/02/17 15:33 116 20 160/83 99 Room Air 08/02/17 15:06 116 20 160/83 99 Room Air 08/02/17 14:00 113 20 153/82 99 Room Air 08/02/17 13:00 113 20 167/90 98 Room Air 08/02/17 12:48 98.4 08/02/17 12:25 116 20 Room Air 08/02/17 12:23 116 20 158/124 99 Room Air 08/02/17 12:17 98.4 08/02/17 11:23 98.4 8 20 124/88 98 Room Air 98.4 Laboratory Tests 08/02/17 11:30: White Blood Count 16.5H, Red Blood Count 3.93L, Hemoglobin 12.3L, Hematocrit 37.8L, Mean Corpuscular Volume 96, Mean Corpuscular Hemoglobin 31.3H, Mean Corpuscular Hemoglobin Concent 32.6, Red Cell Distribution Width 15.2H, Platelet Count 301, Mean Platelet Volume 6.9, Neutrophils (%) (Auto) , Lymphocytes (%) (Auto) , Monocytes (%) (Auto) , Eosinophils (%) (Auto) , Basophils (%) (Auto) , Differential Total Cells Counted 100, Neutrophils % ( Manual) 79H, Lymphocytes % (Manual) 4L, Monocytes % (Manual) 8, Eosinophils % ( Manual) 0, Basophils % (Manual) 0, Band Neutrophils 9H, Platelet Estimate Adequate, Platelet Morphology Normal, Hypochromasia 1+, Anisocytosis 1+, Prothrombin Time 10.2, Prothromb Time International Ratio 1.0, Activated Partial Thromboplast Time 26, Sodium Level 130L, Potassium Level 4.4, Chloride Level 90L, Carbon Dioxide Level 18L, Anion Gap 23H, Blood Urea Nitrogen 31H, Creatinine 1.4H, Estimat Glomerular Filtration Rate > 60, Glucose Level 177H, Calcium Level 10.3H, Total Bilirubin 1.3H, Direct Bilirubin 0.2, Aspartate Amino Transf (AST/SGOT) 32, Alanine Aminotransferase (ALT/SGPT) 15, Alkaline Phosphatase 105, Total Protein 9.3H, Albumin 4.6, Globulin 4.7, Albumin/ Globulin Ratio 1.0 Height (Feet): 5 Height (Inches): 9.00 Weight (Pounds): 150 ANANYA HAMILTON Aug 02, 2017 21:35
[2017-08-03] VITALS: BP 121/94
[2017-08-03] MEDS: Piperacillin/Tazobactam 3.375 GM in NS 110 ML IVPB SCH ×3 (02:16→18:07)
--- NOTE | 2017-08-03 02:45 | Consultation ---
DATE OF CONSULTATION: 08/02/2017 GASTROENTEROLOGY CONSULTATION CONSULTING PHYSICIAN: Nadege Hamilton M.D. CHIEF COMPLAINT: I was asked to see this patient by Dr. Musa Packer for evaluation of nausea and vomiting. HISTORY OF PRESENT ILLNESS: The patient is a pleasant unfortunate 57-year-old man with a history of laryngeal cancer, who comes in with vomiting. The patient states that he has had recurrent bouts of nausea and vomiting of unclear etiology. He complains of pyrosis and is on proton pump inhibitor, but still is symptomatic with periodic nausea and vomiting. He does have some pain and takes narcotics. He has never had a colonoscopy, but he has had an endoscopy at one point to place the feeding tube. This was placed during period of radiation therapy where he needed temporary enteral access for nutrition and medications. The patient denies any diarrhea or hematemesis. He states he has had some degree of metastatic evaluation recently and is to undergo an upcoming surgery at [facility]. His oncologist is Dr. Gage Cantrell at [facility] where he gets most of his care and he was a previous smoker. PAST MEDICAL HISTORY: His [facility] records were reviewed. It appears that recently in July, he was admitted there with multiple issues including non-ST elevation myocardial infarction, possibly due to hypertensive malignancy, nonobstructive coronary disease of 35% to 40%, hypertension, neck pain, poorly differentiated squamous cell carcinoma, alcohol withdrawal seizures and dependence. 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 ALLERGIES: None. FAMILY HISTORY: Negative. SOCIAL HISTORY: The patient has had an extensive history of smoking and drinking. REVIEW OF SYSTEMS: Otherwise negative. PHYSICAL EXAMINATION: GENERAL: This is a pleasant man, seen in his room. HEENT: Normocephalic and atraumatic. Sclerae are anicteric. Oropharynx clear. NECK: Supple. CHEST: Clear to auscultation. CARDIOVASCULAR: Revealed regular rate. ABDOMEN: Soft and nontender. Good bowel sounds. EXTREMITIES: Revealed no edema. LABORATORY DATA: Laboratory data were noted. ASSESSMENT: This patient presents with recurrent nausea and vomiting of unclear etiology. Initially, discussion was held with the patient regarding possible endoscopy. However, since review of records at [facility] showed a recent non-ST segment myocardial infarction and upper gastrointestinal series to be done preliminary to evaluate the upper gastrointestinal tract. The decision for endoscopy can be made at that time. In addition, if the patient's symptoms continue, the HIDA scan can be done to evaluate the gallbladder since the patient does have a known history of gallstones on the CT scan. RECOMMENDATIONS: 1. Clear liquid diet. 2. Proton pump inhibitor. 3. Upper gastrointestinal series tomorrow. 4. Consider endoscopy. 5. Consider HIDA scan. Thank you for asking me to participate in the care of this patient. Nadege Hamilton M.D. DR: ORACIO JOB#: [id number] CC: CHRISTY
[2017-08-03] MEDS: D5 1/2NS w/KCl 20mEq 1,000 ML IV SCH ×3 (03:28→18:07)
[2017-08-03 04:00] VITALS: BP 103/75
--- NOTE | 2017-08-03 07:36 | General Progress Note ---
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 - recurrent N/V - GERD - cholelithiasis - urolithiasis - recent NSTEMI at [facility] - h/o smoking and drinking Recommendations - PPI - NPO today - UGI series this am - if UGI negative, will consider HIDA Subjective Allergies: Coded Allergies: No Known Allergies (Unverified , 09/20/15) Subjective above noted no new symptoms NPO for EGD care plan d/w patient Objective Last 24 Hour Vital Signs Date Time Temp Pulse Resp B/P (MAP) Pulse Ox O2 Delivery O2 Flow Rate FiO2 08/03/17 04:00 86 08/03/17 00:00 94 08/03/17 00:00 98.1 96 18 121/94 99 Room Air 98.1 08/02/17 21:45 98.1 08/02/17 21:15 98.1 08/02/17 20:00 98.2 121 20 154/94 98 Room Air 98.2 08/02/17 20:00 116 08/02/17 18:00 98.1 115 21 162/102 98 Room Air 98.1 08/02/17 16:00 118 08/02/17 15:33 116 20 160/83 99 Room Air 08/02/17 15:06 116 20 160/83 99 Room Air 08/02/17 14:00 113 20 153/82 99 Room Air 08/02/17 13:00 113 20 167/90 98 Room Air 08/02/17 12:48 98.4 08/02/17 12:25 116 20 Room Air 08/02/17 12:23 116 20 158/124 99 Room Air 08/02/17 12:17 98.4 08/02/17 11:23 98.4 8 20 124/88 98 Room Air 98.4 Intake and Output 08/02/17 08/03/17 19:00 07:00 Intake Total 1250 ml 1031 ml Output Total 300 ml 0 ml Balance 950 ml 1031 ml Intake Oral 250 ml 200 ml IV Total 1000 ml 831 ml Output Urine Total 300 ml 0 ml # Voids 1 Laboratory Tests 08/02/17 11:30: White Blood Count 16.5H, Red Blood Count 3.93L, Hemoglobin 12.3L, Hematocrit 37.8L, Mean Corpuscular Volume 96, Mean Corpuscular Hemoglobin 31.3H, Mean Corpuscular Hemoglobin Concent 32.6, Red Cell Distribution Width 15.2H, Platelet Count 301, Mean Platelet Volume 6.9, Neutrophils (%) (Auto) , Lymphocytes (%) (Auto) , Monocytes (%) (Auto) , Eosinophils (%) (Auto) , Basophils (%) (Auto) , Differential Total Cells Counted 100, Neutrophils % ( Manual) 79H, Lymphocytes % (Manual) 4L, Monocytes % (Manual) 8, Eosinophils % ( Manual) 0, Basophils % (Manual) 0, Band Neutrophils 9H, Platelet Estimate Adequate, Platelet Morphology Normal, Hypochromasia 1+, Anisocytosis 1+, Prothrombin Time 10.2, Prothromb Time International Ratio 1.0, Activated Partial Thromboplast Time 26, Sodium Level 130L, Potassium Level 4.4, Chloride Level 90L, Carbon Dioxide Level 18L, Anion Gap 23H, Blood Urea Nitrogen 31H, Creatinine 1.4H, Estimat Glomerular Filtration Rate > 60, Glucose Level 177H, Calcium Level 10.3H, Total Bilirubin 1.3H, Direct Bilirubin 0.2, Aspartate Amino Transf (AST/SGOT) 32, Alanine Aminotransferase (ALT/SGPT) 15, Alkaline Phosphatase 105, Total Protein 9.3H, Albumin 4.6, Globulin 4.7, Albumin/ Globulin Ratio 1.0 Height (Feet): 5 Height (Inches): 9.00 Weight (Pounds): 150 Objective WD AA man NCAT CTA RRR Soft ND NT no edema non focal ANANYA KANG Aug 03, 2017 07:36
[2017-08-03 08:00] VITALS: BP 104/75
[2017-08-03] MEDS: Benazepril 10mg tab ORAL SCH (08:26)
[2017-08-03 08:36] LABS: BASOPHILS % (AUTO) 0.7 % (0.0-2.0); EOSINOPHILS % (AUTO) 0.5 % (0.0-3.0); HEMATOCRIT 32.4 % (42.0-52.0); HEMOGLOBIN 10.5 G/DL (14.2-18.0); LYMPHOCYTES % (AUTO) 11.2 % (20.0-45.0); MEAN CORPUSCULAR VOLUME 96 FL (80-99); MONOCYTES % (AUTO) 8.7 % (1.0-10.0); NEUTROPHILS % (AUTO) 78.9 % (45.0-75.0); PLATELET COUNT 219 K/UL (150-450); RED BLOOD COUNT 3.37 M/UL (4.70-6.10); RED CELL DISTRIBUTION WIDTH 15.1 % (11.6-14.8); WHITE BLOOD COUNT 9.5 K/UL (4.8-10.8)
[2017-08-03 09:35] LABS: ALANINE AMINOTRANSFERASE 12 U/L (12-78); ALBUMIN 3.9 G/DL (3.4-5.0); ALKALINE PHOSPHATASE 73 U/L (46-116); ANION GAP 11 mmol/L (5-15); ASPARTATE AMINO TRANSFERASE 18 U/L (15-37); BILIRUBIN,TOTAL 0.8 MG/DL (0.2-1.0); BLOOD UREA NITROGEN 29 mg/dL (7-18); CALCIUM 9.6 MG/DL (8.5-10.1); CARBON DIOXIDE 24 MMOL/L (21-32); CHLORIDE 98 MMOL/L (98-107); CREATININE 1.7 MG/DL (0.55-1.30); SODIUM 133 MMOL/L (136-145)
[2017-08-03 12:00] VITALS: BP 106/51
--- NOTE | 2017-08-03 13:00 | History & Physical ---
History and Physical History & Physicial HP dictated # RAHBGERMANIA MERCHANT Aug 03, 2017 13:00
--- NOTE | 2017-08-03 14:05 | Diagnostic Imaging Report ---
Indication: Abdominal pain and vomiting. History of laryngeal cancer. FINDINGS: Biphasic upper GI examination was performed. The esophagus showed no obvious structural abnormalities. Mucosal pattern appeared relatively normal. Peristalsis was mildly impaired. There was moderate gastroesophageal reflux which was observed occurring spontaneously with the patient supine. Evaluation of the stomach was limited on this examination due to expulsion of the air that was given to distend the stomach. Consequently the stomach was relatively nondistended and air contrast imaging was limited. No abnormalities of the duodenum or proximal small bowel identified. No obvious ulceration seen within the duodenum. IMPRESSION: Gastroesophageal reflux. Suboptimal evaluation of the stomach as discussed above.
[2017-08-03 16:00] VITALS: BP 97/53
--- NOTE | 2017-08-03 16:29 | Cardiology Report ---
APPROVED REPORT EKG Measurement Heart [id number] Sinus tachycardia Right atrial enlargement Right axis deviation Pulmonary disease pattern T wave abnormality, consider anterior ischemia Abnormal ECG
[2017-08-03 20:00] VITALS: BP 102/60
--- NOTE | 2017-08-03 21:15 | History and Physical Report ---
DATE OF ADMISSION: 08/02/2017 CHIEF COMPLAINT: Diarrhea, nausea, and vomiting. HISTORY OF PRESENT ILLNESS: The patient is a 57-year-old, male with a history of laryngeal cancer. He came to the emergency room with two-day history of nausea, vomiting, and diarrhea. The patient was supposed to come to my office for medical clearance because he was supposed to have surgery for his cancer; however, he did not show up. PAST MEDICAL HISTORY: The patient had a recent history of elevation of troponin to around 2.5, however, the coronary angiogram done at [facility] and there was no significant stenosis and did not have any angioplasty. 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 MEDICATIONS: Reviewed in the EMR. SOCIAL HISTORY: Significant history of smoking and also alcohol abuse. ALLERGIES: No known drug allergies. REVIEW OF SYSTEMS: As above. PHYSICAL EXAMINATION: GENERAL: The patient is a pleasant male, in no acute distress. VITAL SIGNS: Blood pressure is 106/51, pulse is 87, temperature 97.2 degrees, and respiratory rate is 18. HEENT: Pale conjunctivae. Anicteric sclerae. NECK: Supple. LUNGS: Clear to auscultation. HEART: S1 and S2 without murmurs or rubs. ABDOMEN: Soft and nontender. EXTREMITIES: No cyanosis. LABORATORY AND DIAGNOSTIC DATA: The CBC shows WBC of 9.5, which is down from 16,500, hematocrit is 32.4 hemoglobin is 10.5, and platelets are 219,000. Chemistry panel shows a serum sodium 133, potassium 4, chloride 98, CO2 24, BUN is 29, creatinine 1.7, and blood sugar is 140. ASSESSMENT: This is a 57-year-old male with history of throat cancer, who is admitted now with diarrhea, nausea, vomiting, and inability to keep anything down, possibility of acute gastroenteritis. PLAN: The patient will be on liquid diet. Proton pump inhibitor. He was already seen by Dr. Hamilton in GI consultation. Upper GI series were planned, and we will also consider endoscopy and HIDA scan. Meanwhile, the patient is being hydrated with IV fluids. Note that the patient has also acute renal failure, which could be from prerenal azotemia or even acute tubular necrosis. Labs will be followed and further adjustments will be made in the patient's regimen. Musa Packer M.D. DR: SMITHA JOB#: [id number] CC:
[2017-08-04] VITALS (7 sets, daily range): BP systolic 74–129; BP diastolic 47–77
[2017-08-04] MEDS: D5 1/2NS w/KCl 20mEq 1,000 ML IV SCH ×2 (02:37→10:24)
[2017-08-04] MEDS: Piperacillin/Tazobactam 3.375 GM in NS 110 ML IVPB SCH ×2 (02:37→11:37)
[2017-08-04 07:18] LABS: BASOPHILS % (AUTO) 1.2 % (0.0-2.0); EOSINOPHILS % (AUTO) 2.9 % (0.0-3.0); HEMATOCRIT 30.1 % (42.0-52.0); HEMOGLOBIN 9.9 G/DL (14.2-18.0); LYMPHOCYTES % (AUTO) 22.4 % (20.0-45.0); MEAN CORPUSCULAR VOLUME 98 FL (80-99); MONOCYTES % (AUTO) 8.6 % (1.0-10.0); NEUTROPHILS % (AUTO) 64.9 % (45.0-75.0); PLATELET COUNT 182 K/UL (150-450); RED BLOOD COUNT 3.08 M/UL (4.70-6.10); RED CELL DISTRIBUTION WIDTH 15.4 % (11.6-14.8); WHITE BLOOD COUNT 9.6 K/UL (4.8-10.8)
[2017-08-04 07:49] LABS: ANION GAP 8 mmol/L (5-15); BLOOD UREA NITROGEN 33 mg/dL (7-18); CALCIUM 9.1 MG/DL (8.5-10.1); CARBON DIOXIDE 23 MMOL/L (21-32); CHLORIDE 98 MMOL/L (98-107); CREATININE 3.1 MG/DL (0.55-1.30); SODIUM 129 MMOL/L (136-145)
[2017-08-04] MEDS: Benazepril 10mg tab ORAL SCH (09:00)
--- NOTE | 2017-08-04 13:02 | General Progress Note ---
Assessment/Plan Problem List: (1) Acute gastroenteritis ICD Codes: K52.9 - Noninfective gastroenteritis and colitis, unspecified SNOMED: 13805566 (2) History of throat cancer ICD Codes: Z85.819 - Personal history of malignant neoplasm of unspecified site of lip, oral cavity, and pharynx SNOMED: 492943843 (3) Vomiting ICD Codes: R11.10 - Vomiting, unspecified SNOMED: 508207629 (4) Abdominal pain ICD Codes: R10.9 - Unspecified abdominal pain SNOMED: 96037162 (5) ARF (acute renal failure) ICD Codes: N17.9 - Acute kidney failure, unspecified SNOMED: 03657172 Status Narrative better GI floyd ARF worse Assessment/Plan Regular diet Pain meds DC IVF check Renal US urine studies Subjective Allergies: Coded Allergies: No Known Allergies (Unverified , 09/20/15) Subjective feels better Objective Last 24 Hour Vital Signs Date Time Temp Pulse Resp B/P (MAP) Pulse Ox O2 Delivery O2 Flow Rate FiO2 08/04/17 09:15 96.7 08/04/17 09:00 105/68 08/04/17 08:00 91 08/04/17 08:00 96.7 89 20 103/65 95 Room Air 96.7 08/04/17 04:00 97.9 82 18 108/74 98 Room Air 97.9 08/04/17 04:00 79 08/04/17 00:00 97.9 83 12 74/47 98 Room Air 97.9 08/04/17 00:00 79 08/03/17 20:00 85 08/03/17 20:00 98.1 81 16 102/60 99 Room Air 98.1 08/03/17 16:00 97.3 85 18 97/53 97 97.3 08/03/17 16:00 85 Intake and Output 08/03/17 08/04/17 19:00 07:00 Intake Total 696 ml 1964 ml Balance 696 ml 1964 ml Intake Oral 240 ml 400 ml IV Total 456 ml 1564 ml # Voids 2 # Bowel Movements 1 Laboratory Tests 08/04/17 05:50: White Blood Count 9.6, Red Blood Count 3.08L, Hemoglobin 9.9L, Hematocrit 30.1L , Mean Corpuscular Volume 98, Mean Corpuscular Hemoglobin 32.0H, Mean Corpuscular Hemoglobin Concent 32.8, Red Cell Distribution Width 15.4H, Platelet Count 182, Mean Platelet Volume 7.2, Neutrophils (%) (Auto) 64.9, Lymphocytes (%) (Auto) 22.4, Monocytes (%) (Auto) 8.6, Eosinophils (%) (Auto) 2.9, Basophils (%) (Auto) 1.2, Sodium Level 129L, Potassium Level 4.0, Chloride Level 98, Carbon Dioxide Level 23, Anion Gap 8, Blood Urea Nitrogen 33H, Creatinine 3.1#H, Estimat Glomerular Filtration Rate 25.2, Glucose Level 111H, Calcium Level 9.1 Height (Feet): 5 Height (Inches): 9.00 Weight (Pounds): 150 Cardiovascular: normal rate Respiratory/Chest: lungs clear Abdomen: soft GERMANIA MIMS Aug 04, 2017 13:02
--- NOTE | 2017-08-04 17:35 | Cardiac Electrophysiology PN ---
Subjective Subjective Cardiology consult dictated [id number] Objective Last 24 Hour Vital Signs Date Time Temp Pulse Resp B/P (MAP) Pulse Ox O2 Delivery O2 Flow Rate FiO2 08/04/17 16:00 98.2 82 20 98/64 96 Room Air 98.2 08/04/17 13:50 125/69 08/04/17 12:00 83 08/04/17 12:00 98.1 90 20 101/66 97 Room Air 98.1 08/04/17 09:15 96.7 08/04/17 09:00 105/68 08/04/17 08:00 91 08/04/17 08:00 96.7 89 20 103/65 95 Room Air 96.7 08/04/17 04:00 97.9 82 18 108/74 98 Room Air 97.9 08/04/17 04:00 79 08/04/17 00:00 97.9 83 12 74/47 98 Room Air 97.9 08/04/17 00:00 79 08/03/17 20:00 85 08/03/17 20:00 98.1 81 16 102/60 99 Room Air 98.1 Intake and Output 08/03/17 08/04/17 19:00 07:00 Intake Total 696 ml 1964 ml Balance 696 ml 1964 ml Intake Oral 240 ml 400 ml IV Total 456 ml 1564 ml # Voids 2 # Bowel Movements 1 Laboratory Tests Test 08/04/17 05:50 White Blood Count 9.6 K/UL (4.8-10.8) Red Blood Count 3.08 M/UL (4.70-6.10) L Hemoglobin 9.9 G/DL (14.2-18.0) L Hematocrit 30.1 % (42.0-52.0) L Mean Corpuscular Volume 98 FL (80-99) Mean Corpuscular Hemoglobin 32.0 PG (27.0-31.0) H Mean Corpuscular Hemoglobin Concent 32.8 G/DL (32.0-36.0) Red Cell Distribution Width 15.4 % (11.6-14.8) H Platelet Count 182 K/UL (150-450) Mean Platelet Volume 7.2 FL (6.5-10.1) Neutrophils (%) (Auto) 64.9 % (45.0-75.0) Lymphocytes (%) (Auto) 22.4 % (20.0-45.0) Monocytes (%) (Auto) 8.6 % (1.0-10.0) Eosinophils (%) (Auto) 2.9 % (0.0-3.0) Basophils (%) (Auto) 1.2 % (0.0-2.0) Sodium Level 129 MMOL/L (136-145) L Potassium Level 4.0 MMOL/L (3.5-5.1) Chloride Level 98 MMOL/L (98-107) Carbon Dioxide Level 23 MMOL/L (21-32) Anion Gap 8 mmol/L (5-15) Blood Urea Nitrogen 33 mg/dL (7-18) H Creatinine 3.1 MG/DL (0.55-1.30) #H Estimat Glomerular Filtration Rate 25.2 mL/min (>60) Glucose Level 111 MG/DL (74-106) H Calcium Level 9.1 MG/DL (8.5-10.1) LUISANA SHAFFER Aug 04, 2017 17:35
[2017-08-04 18:40] LABS: APPEARANCE,URINE CLEAR; BILIRUBIN, URINE NEGATIVE (NEGATIVE); COLOR,URINE PALE YELLOW; GLUCOSE, URINE (UA) NEGATIVE (NEGATIVE); KETONES,URINE NEGATIVE (NEGATIVE); LEUKOCYTE ESTERASE ,URINE NEGATIVE (NEGATIVE); NITRITE,URINE NEGATIVE (NEGATIVE); PH,URINE 7 (4.5-8.0); PROTEIN,URINE 1+ (NEGATIVE); UROBILINOGEN,URINE NORMAL MG/DL (0.0-1.0)
--- NOTE | 2017-08-04 19:59 | General Progress Note ---
Assessment/Plan Assessment/Plan Assessment - Tonsillar CA, S/p chemo and XRT - s/p GT insertion and removal 2016 - recurrent N/V - better now - GERD - cholelithiasis - urolithiasis - recent NSTEMI at [facility] - h/o smoking and drinking Recommendations - PPI - po as tolerated - follow symptoms Subjective Allergies: Coded Allergies: No Known Allergies (Unverified , 09/20/15) Subjective above noted UGI noted able to eat no vomiting Objective Last 24 Hour Vital Signs Date Time Temp Pulse Resp B/P (MAP) Pulse Ox O2 Delivery O2 Flow Rate FiO2 08/04/17 16:00 88 08/04/17 16:00 98.2 82 20 98/64 96 Room Air 98.2 08/04/17 13:50 125/69 08/04/17 12:00 83 08/04/17 12:00 98.1 90 20 101/66 97 Room Air 98.1 08/04/17 09:15 96.7 08/04/17 09:00 105/68 08/04/17 08:00 91 08/04/17 08:00 96.7 89 20 103/65 95 Room Air 96.7 08/04/17 04:00 97.9 82 18 108/74 98 Room Air 97.9 08/04/17 04:00 79 08/04/17 00:00 97.9 83 12 74/47 98 Room Air 97.9 08/04/17 00:00 79 08/03/17 20:00 85 08/03/17 20:00 98.1 81 16 102/60 99 Room Air 98.1 Intake and Output 08/03/17 08/04/17 19:00 07:00 Intake Total 696 ml 1964 ml Balance 696 ml 1964 ml Intake Oral 240 ml 400 ml IV Total 456 ml 1564 ml # Voids 2 # Bowel Movements 1 Laboratory Tests 08/04/17 05:50: White Blood Count 9.6, Red Blood Count 3.08L, Hemoglobin 9.9L, Hematocrit 30.1L , Mean Corpuscular Volume 98, Mean Corpuscular Hemoglobin 32.0H, Mean Corpuscular Hemoglobin Concent 32.8, Red Cell Distribution Width 15.4H, Platelet Count 182, Mean Platelet Volume 7.2, Neutrophils (%) (Auto) 64.9, Lymphocytes (%) (Auto) 22.4, Monocytes (%) (Auto) 8.6, Eosinophils (%) (Auto) 2.9, Basophils (%) (Auto) 1.2, Sodium Level 129L, Potassium Level 4.0, Chloride Level 98, Carbon Dioxide Level 23, Anion Gap 8, Blood Urea Nitrogen 33H, Creatinine 3.1#H, Estimat Glomerular Filtration Rate 25.2, Glucose Level 111H, Calcium Level 9.1 08/04/17 17:46: Urine Color Pale yellow, Urine Appearance Clear, Urine pH 7, Urine Specific [place] 1.005, Urine Protein 1+H, Urine Glucose (UA) Negative, Urine Ketones Negative, Urine Occult Blood 1+H, Urine Nitrite Negative, Urine Bilirubin Negative, Urine Urobilinogen Normal, Urine Leukocyte Esterase Negative, Urine RBC 2-4H, Urine WBC 0-2, Urine Squamous Epithelial Cells None, Urine Bacteria Few, Urine Random Sodium 37, Urine Creatinine 62.4 Height (Feet): 5 Height (Inches): 9.00 Weight (Pounds): 150 Objective WD AA man NCAT CTA RRR Soft ND NT no edema non focal ANANYA KANG Aug 04, 2017 19:59
[2017-08-05 00:20] VITALS: BP 101/59
[2017-08-05 04:00] VITALS: BP 103/60
--- NOTE | 2017-08-05 04:30 | Consultation ---
DATE OF CONSULTATION: 08/04/2017 CARDIOLOGY CONSULTATION CONSULTING PHYSICIAN: Nadeem Delcid M.D. REFERRING PHYSICIAN: Musa Packer M.D. REASON FOR CONSULTATION: Preoperative clearance prior to cancer surgery. HISTORY OF PRESENT ILLNESS: The patient is a very pleasant 57-year-old gentleman with a history of laryngeal cancer who came to the emergency room for two days of nausea, vomiting, and diarrhea. The patient also has a history of troponin elevation about 2.5, right coronary angiogram at [facility], reportedly there was no critical stenosis and did not need any intervention. The patient also has a history of alcohol withdrawal and seizure as well as Poon esophagus. Based on the endoscopy of March 16, also has a history of hiatal hernia. At the time of my evaluation, the patient denies any chest pain, palpitation, or shortness of breath. PAST MEDICAL HISTORY: 1. History of laryngeal cancer, squamous cell carcinoma. 2. History of troponin leak with negative coronary angiogram. 3. History of alcohol use. 4. Seizure disorder. 5. Poon esophagus. 6. Hiatal hernia. MEDICATIONS: Norvasc 5 mg daily, benazepril 10 mg daily, gabapentin, magnesium oxide, and Seroquel. ALLERGIES: He has no known drug allergies. FAMILY HISTORY: Noncontributory. SOCIAL HISTORY: He has a history of smoking and alcohol use. REVIEW OF SYSTEMS: Review of systems was negative other than what was mentioned in the history of present illness. PHYSICAL EXAMINATION: VITAL SIGNS: Blood pressure is 98/64, pulse is 82, respirations 18, and temperature 98.2 degrees. HEAD AND NECK: No JVD. LUNGS: Clear. CARDIOVASCULAR: Regular S1 and S2 with no gallop or murmur. ABDOMEN: Soft. EXTREMITIES: No pitting edema. LABORATORY AND DIAGNOSTIC DATA: White count 9.0, hemoglobin 9.9, hematocrit of 30, and platelet count is 182. Sodium 129, potassium is 4, BUN of 30, creatinine of 3.1, and glucose of 111. His INR is 1. ASSESSMENT AND PLAN: 1. Hypertension. In view of the patient's rise in creatinine level, I will discontinue benazepril. The patient's blood pressure is running on the lower side. Norvasc 5 mg daily. 2. History of troponin leak. Reviewed the records of [facility] again, but reportedly cardiac catheterization at [facility] showed no evidence of coronary artery disease. 3. Acute gastroenteritis, non-infectious. 4. Throat cancer. 5. Acute renal failure, it is getting worse. Renal ultrasound is pending. Further evaluation by Dr. Musa Packer. Thank you very much, Dr. Packer, for allowing me to participate in the care of this patient. Please do not hesitate to contact me for any questions regarding my evaluation. Nadeem Delcid M.D. DR: HYACINTH JOB#: [id number] CC:
[2017-08-05 07:18] LABS: BASOPHILS % (AUTO) 0.7 % (0.0-2.0); EOSINOPHILS % (AUTO) 4.5 % (0.0-3.0); HEMATOCRIT 29.1 % (42.0-52.0); HEMOGLOBIN 9.6 G/DL (14.2-18.0); LYMPHOCYTES % (AUTO) 24.9 % (20.0-45.0); MEAN CORPUSCULAR VOLUME 97 FL (80-99); MONOCYTES % (AUTO) 8.8 % (1.0-10.0); NEUTROPHILS % (AUTO) 61.1 % (45.0-75.0); PLATELET COUNT 185 K/UL (150-450); RED BLOOD COUNT 3.01 M/UL (4.70-6.10); RED CELL DISTRIBUTION WIDTH 15.2 % (11.6-14.8); WHITE BLOOD COUNT 7.4 K/UL (4.8-10.8)
[2017-08-05 07:47] LABS: ANION GAP 8 mmol/L (5-15); BLOOD UREA NITROGEN 18 mg/dL (7-18); CARBON DIOXIDE 26 MMOL/L (21-32); CHLORIDE 100 MMOL/L (98-107); CREATININE 1.3 MG/DL (0.55-1.30); POTASSIUM 3.8 MMOL/L (3.5-5.1); SODIUM 133 MMOL/L (136-145)
[2017-08-05 08:00] VITALS: BP 126/78
[2017-08-05 12:00] VITALS: BP 118/68
--- NOTE | 2017-08-05 15:06 | Cardiac Electrophysiology PN ---
Assessment/Plan Assessment/Plan 1. Hypertension. Continue Norvasc 5 mg daily. 2. History of troponin leak. Reviewed the records of [facility]. Had cardiac catheterization at [facility] on 07/16/2017 that showed no evidence of sig coronary artery disease(LM, LAD and CX were free of The time of the dictation or oracle application consultant may not correspond to the time that the patient was actually seen or examined.disease and only 40% mid RCS stenosis) . 3. Acute gastroenteritis, non-infectious. 4. Throat cancer. Clear from cardiac perspective to undergo neck surgery at [facility] as scheduled 5. Acute renal failure, Creatinine normalized to 1.3. Further evaluation by Dr. Musa Packer. DW Dr Packer Subjective Subjective No events over night. [facility] record reviewed Objective Last 24 Hour Vital Signs Date Time Temp Pulse Resp B/P (MAP) Pulse Ox O2 Delivery O2 Flow Rate FiO2 08/05/17 12:00 98.2 82 20 118/68 96 Room Air 98.2 08/05/17 10:41 98.6 08/05/17 10:08 86 126/78 08/05/17 08:00 98.6 86 20 126/78 95 Room Air 98.6 08/05/17 04:00 98.4 95 20 103/60 96 Room Air 98.4 08/05/17 03:54 90 08/05/17 00:20 98.0 86 20 101/59 96 Room Air 98.0 08/04/17 23:59 78 08/04/17 20:00 98.0 88 20 129/77 96 Room Air 98.0 08/04/17 19:12 90 08/04/17 16:00 88 08/04/17 16:00 98.2 82 20 98/64 96 Room Air 98.2 Intake and Output 08/04/17 08/05/17 19:00 07:00 Intake Total 1194 ml Balance 1194 ml Intake Oral 890 ml IV Total 304 ml # Voids 2 2 # Bowel Movements 1 Laboratory Tests Test 08/04/17 17:46 08/05/17 06:30 Urine Color Pale yellow Urine Appearance Clear Urine pH 7 (4.5-8.0) Urine Specific [place] 1.005 (1.005-1.035) Urine Protein 1+ (NEGATIVE) H Urine Glucose (UA) Negative (NEGATIVE) Urine Ketones Negative (NEGATIVE) Urine Occult Blood 1+ (NEGATIVE) H Urine Nitrite Negative (NEGATIVE) Urine Bilirubin Negative (NEGATIVE) Urine Urobilinogen Normal MG/DL (0.0-1.0) Urine Leukocyte Esterase Negative (NEGATIVE) Urine RBC 2-4 /HPF (0 - 0) H Urine WBC 0-2 /HPF (0 - 0) Urine Squamous Epithelial Cells None /LPF (NONE/OCC) Urine Bacteria Few /HPF (NONE) Urine Random Sodium 37 mmol/L (20-110) Urine Creatinine 62.4 MG/DL (30.0-125.0) White Blood Count 7.4 K/UL (4.8-10.8) Red Blood Count 3.01 M/UL (4.70-6.10) L Hemoglobin 9.6 G/DL (14.2-18.0) L Hematocrit 29.1 % (42.0-52.0) L Mean Corpuscular Volume 97 FL (80-99) Mean Corpuscular Hemoglobin 32.0 PG (27.0-31.0) H Mean Corpuscular Hemoglobin Concent 33.1 G/DL (32.0-36.0) Red Cell Distribution Width 15.2 % (11.6-14.8) H Platelet Count 185 K/UL (150-450) Mean Platelet Volume 7.0 FL (6.5-10.1) Neutrophils (%) (Auto) 61.1 % (45.0-75.0) Lymphocytes (%) (Auto) 24.9 % (20.0-45.0) Monocytes (%) (Auto) 8.8 % (1.0-10.0) Eosinophils (%) (Auto) 4.5 % (0.0-3.0) H Basophils (%) (Auto) 0.7 % (0.0-2.0) Sodium Level 133 MMOL/L (136-145) L Potassium Level 3.8 MMOL/L (3.5-5.1) Chloride Level 100 MMOL/L (98-107) Carbon Dioxide Level 26 MMOL/L (21-32) Anion Gap 8 mmol/L (5-15) Blood Urea Nitrogen 18 mg/dL (7-18) Creatinine 1.3 MG/DL (0.55-1.30) # Estimat Glomerular Filtration Rate > 60 mL/min (>60) Glucose Level 112 MG/DL (74-106) H Calcium Level 9.0 MG/DL (8.5-10.1) Pro-B-Type Natriuretic Peptide 76 pg/mL (0-125) Objective HEAD AND NECK: No JVD. LUNGS: Clear. CARDIOVASCULAR: Regular S1 and S2 with no gallop or murmur. ABDOMEN: Soft. EXTREMITIES: No pitting edema. LUISANA SHAFFER Aug 05, 2017 15:06
--- NOTE | 2017-08-05 22:25 | General Progress Note ---
Assessment/Plan Assessment/Plan Assessment - Tonsillar CA, S/p chemo and XRT - s/p GT insertion and removal 2016 - recurrent N/V - better now - GERD - cholelithiasis - urolithiasis - recent NSTEMI at [facility] - h/o smoking and drinking Recommendations - PPI - po as tolerated - follow symptoms - d/c planning Subjective Allergies: Coded Allergies: No Known Allergies (Unverified , 09/20/15) Subjective above noted able to eat no vomiting Objective Last 24 Hour Vital Signs Date Time Temp Pulse Resp B/P (MAP) Pulse Ox O2 Delivery O2 Flow Rate FiO2 08/05/17 12:00 98.2 82 20 118/68 96 Room Air 98.2 08/05/17 10:41 98.6 08/05/17 10:08 86 126/78 08/05/17 08:00 98.6 86 20 126/78 95 Room Air 98.6 08/05/17 04:00 98.4 95 20 103/60 96 Room Air 98.4 08/05/17 03:54 90 08/05/17 00:20 98.0 86 20 101/59 96 Room Air 98.0 08/04/17 23:59 78 Intake and Output 08/04/17 08/05/17 19:00 07:00 Intake Total 1194 ml Balance 1194 ml Intake Oral 890 ml IV Total 304 ml # Voids 2 2 # Bowel Movements 1 Laboratory Tests 08/05/17 06:30: White Blood Count 7.4, Red Blood Count 3.01L, Hemoglobin 9.6L, Hematocrit 29.1L , Mean Corpuscular Volume 97, Mean Corpuscular Hemoglobin 32.0H, Mean Corpuscular Hemoglobin Concent 33.1, Red Cell Distribution Width 15.2H, Platelet Count 185, Mean Platelet Volume 7.0, Neutrophils (%) (Auto) 61.1, Lymphocytes (%) (Auto) 24.9, Monocytes (%) (Auto) 8.8, Eosinophils (%) (Auto) 4.5H, Basophils (%) (Auto) 0.7, Sodium Level 133L, Potassium Level 3.8, Chloride Level 100, Carbon Dioxide Level 26, Anion Gap 8, Blood Urea Nitrogen 18 , Creatinine 1.3#, Estimat Glomerular Filtration Rate > 60, Glucose Level 112H, Calcium Level 9.0, Pro-B-Type Natriuretic Peptide 76 Height (Feet): 5 Height (Inches): 9.00 Weight (Pounds): 150 Objective WD AA man NCAT CTA RRR Soft ND NT no edema non focal ANANYA KANG Aug 05, 2017 22:25
--- NOTE | 2017-08-06 10:14 | Discharge Summary ---
Discharge Summary Hospital Course Date of Admission Aug 02, 2017 at 13:05 Date of Discharge Aug 05, 2017 at 13:16 Admitting Diagnosis DEHYDRATION, HX OF CA HPI Shoaib Michel is a 57 year old male who was admitted on Aug 02, 2017 at 13:05 for History Of Cancer Hospital Course [id number] Discharge Discharge Disposition Patient was discharged to Home (01) Discharge Diagnoses: Olive Reilly NP Aug 06, 2017 10:14
--- NOTE | 2017-08-06 14:13 | Emergency Room Report ---
History of Present Illness General Chief Complaint: Nausea, Vomiting, and Diarrhea Present Illness HPI Patient is a 57-year-old male presented after increased vomiting and diarrhea. Patient had prior history of unknown head and neck cancer. Patient reported having none bloody emesis with watery diarrhea. Patient denied any fever. Patient previous episode of cholelithiasis. Allergies: Coded Allergies: No Known Allergies (Unverified , 09/20/15) Patient History Past Medical History: see triage record Reviewed Nursing Documentation: PMH: Agreed, PSxH: Agreed Nursing Documentation-PMH Hx Cardiac Problems: Yes Hx Hypertension: Yes Hx COPD: Yes Hx Cancer: Yes - LYMPH NODES Hx Gastrointestinal Problems: Yes - abdominal pain Hx Neurological Problems: No Review of Systems All Other Systems: negative except mentioned in HPI Physical Exam Vital Signs Date Time Temp Pulse Resp B/P (MAP) Pulse Ox O2 Delivery O2 Flow Rate FiO2 08/02/17 11:23 98.4 8 20 124/88 98 Room Air 98.4 Sp02 EP Interpretation: reviewed, normal General Appearance: normal inspection, well appearing, no apparent distress, alert, GCS 15 Head: atraumatic ENT: normal ENT inspection, hearing grossly normal, normal voice Neck: normal inspection, full range of motion, supple, no bony tend Respiratory: normal inspection, lungs clear, normal breath sounds, no respiratory distress, no retraction, no wheezing Cardiovascular #1: regular rate, rhythm, no edema Gastrointestinal: normal inspection, normal bowel sounds, non tender, soft, no guarding, no hernia Genitourinary: no CVA tenderness Musculoskeletal: normal inspection, back normal, normal range of motion Neurologic: normal inspection, alert, oriented x3, responsive, structural design engineer III-XII nml as tested, speech normal Psychiatric: normal inspection, judgement/insight normal, mood/affect normal Skin: normal inspection, normal color, no rash Medical Decision Making Diagnostic Impression: Primary Impression: Abdominal pain ER Course Patient presented for abdominal pain. Differential diagnoses included ischemic bowel, appendicitis, perforated viscus, abdominal aortic aneurysm, inferior myocardial infarction, viral gastroenteritis Because of complexity of patient's case laboratory testing and imaging studies were ordered. Patient was started on IV fluids as well as IV antiemetics. He was given pain medication. Laboratory tests were notable for elevated white blood count as well as some elevated bands. Dr. Musa Mims was contacted for inpatient management Labs Test 3/5/18 11:30 08/03/17 07:50 08/04/17 17:46 08/05/17 06:30 Differential Total Cells Counted 100 Neutrophils % (Manual) 79 % (45-75) Lymphocytes % (Manual) 4 % (20-45) Monocytes % (Manual) 8 % (1-10) Eosinophils % (Manual) 0 % (0-3) Basophils % (Manual) 0 % (0-2) Band Neutrophils 9 % (0-8) Platelet Estimate Adequate Platelet Morphology Normal Hypochromasia 1+ Anisocytosis 1+ Prothrombin Time 10.2 SEC (9.30-11.50) Prothromb Time International Ratio 1.0 (0.9-1.1) Activated Partial Thromboplast Time 26 SEC (23-33) Direct Bilirubin 0.2 MG/DL (0.0-0.3) Total Bilirubin 0.8 MG/DL (0.2-1.0) Aspartate Amino Transf (AST/SGOT) 18 U/L (15-37) Alanine Aminotransferase (ALT/SGPT) 12 U/L (12-78) Alkaline Phosphatase 73 U/L (46-116) Total Protein 7.8 G/DL (6.4-8.2) Albumin 3.9 G/DL (3.4-5.0) Globulin 3.9 g/dL Albumin/Globulin Ratio 1.0 (1.0-2.7) Urine Color Pale yellow Urine Appearance Clear Urine pH 7 (4.5-8.0) Urine Specific [place] 1.005 (1.005-1.035) Urine Protein 1+ (NEGATIVE) Urine Glucose (UA) Negative (NEGATIVE) Urine Ketones Negative (NEGATIVE) Urine Occult Blood 1+ (NEGATIVE) Urine Nitrite Negative (NEGATIVE) Urine Bilirubin Negative (NEGATIVE) Urine Urobilinogen Normal MG/DL (0.0-1.0) Urine Leukocyte Esterase Negative (NEGATIVE) Urine RBC 2-4 /HPF (0 - 0) Urine WBC 0-2 /HPF (0 - 0) Urine Squamous Epithelial Cells None /LPF (NONE/OCC) Urine Bacteria Few /HPF (NONE) Urine Random Sodium 37 mmol/L (20-110) Urine Creatinine 62.4 MG/DL (30.0-125.0) White Blood Count 7.4 K/UL (4.8-10.8) Red Blood Count 3.01 M/UL (4.70-6.10) Hemoglobin 9.6 G/DL (14.2-18.0) Hematocrit 29.1 % (42.0-52.0) Mean Corpuscular Volume 97 FL (80-99) Mean Corpuscular Hemoglobin 32.0 PG (27.0-31.0) Mean Corpuscular Hemoglobin Concent 33.1 G/DL (32.0-36.0) Red Cell Distribution Width 15.2 % (11.6-14.8) Platelet Count 185 K/UL (150-450) Mean Platelet Volume 7.0 FL (6.5-10.1) Neutrophils (%) (Auto) 61.1 % (45.0-75.0) Lymphocytes (%) (Auto) 24.9 % (20.0-45.0) Monocytes (%) (Auto) 8.8 % (1.0-10.0) Eosinophils (%) (Auto) 4.5 % (0.0-3.0) Basophils (%) (Auto) 0.7 % (0.0-2.0) Sodium Level 133 MMOL/L (136-145) Potassium Level 3.8 MMOL/L (3.5-5.1) Chloride Level 100 MMOL/L (98-107) Carbon Dioxide Level 26 MMOL/L (21-32) Anion Gap 8 mmol/L (5-15) Blood Urea Nitrogen 18 mg/dL (7-18) Creatinine 1.3 MG/DL (0.55-1.30) Estimat Glomerular Filtration Rate > 60 mL/min (>60) Glucose Level 112 MG/DL (74-106) Calcium Level 9.0 MG/DL (8.5-10.1) Pro-B-Type Natriuretic Peptide 76 pg/mL (0-125) Last Vital Signs Date Time Temp Pulse Resp B/P (MAP) Pulse Ox O2 Delivery O2 Flow Rate FiO2 08/05/17 12:00 98.2 82 20 118/68 96 Room Air 98.2 Status: unchanged Disposition: ADMITTED INPATIENT Condition: Serious Referrals: [facility] (PCP) Patient Instructions: Smoking Cessation, Tips for Success, [id number], Nausea and Vomiting, Adult, [id number], Throat Cancer Ryan Ronquillo Aug 06, 2017 14:13
--- NOTE | 2017-08-07 00:30 | Discharge Summary 2 SIG ---
DATE OF ADMISSION: 08/02/2017 DATE OF DISCHARGE: 08/05/2017 CONSULTANTS: 1. Nadege Hamilton M.D. 2. Nadeem Delcid M.D. BRIEF HOSPITAL COURSE: The patient is a 57-year-old male with history of laryngeal cancer, presented to ER for complaints of 2-day history of nausea, vomiting, and diarrhea. The patient had an upcoming schedule for surgery for his cancer. He has medical history significant for history of elevated troponin, however, coronary angiogram done at [facility] did not show any significant stenosis and the patient did not have any angioplasty done. 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 He was admitted for evaluation of diarrhea, nausea and vomiting, and inability to keep anything down and possible acute gastroenteritis. He was initially placed on liquid diet and was given proton pump inhibitors and IV fluid. Creatinine was elevated to 1.3. BUN was 29. He was given IV fluids. He was seen by Dr. Hamilton. He had an upper GI series done that showed gastroesophageal reflux. He was also seen by Dr. Delcid for preop clearance prior to his upcoming cancer surgery. The patient has hypertension and antihypertensives were adjusted. Benazepril was discontinued. He was eventually started on Norvasc 5 mg daily. Diet was advanced. He was tolerating diet. He was continued on proton pump inhibitors. He was cleared for neck surgery. He was eventually discharged home. FINAL DIAGNOSES: 1. Recurrent nausea and vomiting. 2. Gastroesophageal reflux disease. 3. Cholelithiasis. 4. Urolithiasis. 5. Tonsillar CA. 6. Hypertension. 7. Acute renal failure. 8. History of troponin leak. 9. Acute gastroenteritis. 10. Vomiting and abdominal pain. DISPOSITION: The patient was discharged home. DISCHARGE MEDICATIONS: Refer to medication list. DISCHARGE INSTRUCTIONS: Follow up as outpatient. The patient was cleared by Cardiology for upcoming neck surgery. Musa Packer M.D. I have been assigned to dictate discharge summary on this account and I was not involved in the patient's management. Olive Reilly N.P. DR: CHAITANYA JOB#: [id number] CC:
--- NOTE | 2017-08-09 09:28 | Cardiology Report ---
APPROVED REPORT EXAM: Two-dimensional and M-mode echocardiogram with Doppler and color Doppler. INDICATION Pre-Op M-Mode DIMENSIONS IVSd1.3 (0.7-1.1cm)Left Atrium (MM)3.6 (1.6-4.0cm) LVDd4.5 (3.5-5.6cm)Aortic Root3.2 (2.0-3.7cm) PWd1.3 (0.7-1.1cm)Aortic Cusp Exc.2.3 (1.5-2.0cm) LVDs2.9 (2.5-4.0cm) PWs1.7 cm Normal left ventricular chamber size, systolic function and wall motion. Left ventricular ejection fraction estimated to be 65 %. No evidence of left ventricular hypertrophy. Anterior Echo-free space, may be due to pericardial fat or effusion. All other cardiac chamber sizes are within normal limits. Mild focal aortic valve sclerosis with adequate cusp excursion. Mildly thickened mitral valve leaflets with normal excursion. Mild mitral annulus and aortic root calcification. Normal pulmonic valve structure. Normal tricuspid valve structure. IVC at normal size with physiologic collapse. A color flow and spectral Doppler study was performed and revealed: Mild mitral regurgitation. Mitral diastolic velocities suggest reduced left ventricular relaxation c/w mild LV diastolic dysfunction (Grade I ). Trace tricuspid regurgitation. Tricuspid systolic velocities suggests peak right ventricular systolic pressure of 15 mmHg. Trace pulmonic regurgitation present.
== END 2017-08-05 13:16 | disposition home or self-care (01) | DRG 684 ==
LOC: EMR 11:45 → 2E 13:05 → EDBEDREQ 14:09
DX: N17.9 Acute kidney failure, unspecified (principal); N20.9 Urinary calculus, unspecified; C09.9 Malignant neoplasm of tonsil, unspecified; I10 Essential (primary) hypertension; K52.89 Other specified noninfective gastroenteritis and colitis; K80.20 Calculus of gallbladder without cholecystitis without obstruction; G40.909 Epilepsy, unspecified, not intractable, without status epilepticus; F10.10 Alcohol abuse, uncomplicated; Z72.0 Tobacco use; K21.9 Gastro-esophageal reflux disease without esophagitis; I25.2 Old myocardial infarction
CPT/HCPCS: 36415; 74247; 80048; 80053; 81001; 82248; 82570; 83880; 84300; 85007; 85025; 85610; 85730; 87081; 93005; 93306; 99285; J2405